=== PATIENT | female | born 1965 | race Hispanic/Latino ===

== ENCOUNTER 2016-11-19 11:33 | Inpatient (IN) | payer MEDICAID ==
[2016-11-19] MEDS ORDERED: ZOFRAN IV ONE (12:23)
[2016-11-19] MEDS ORDERED: ASPIRIN PO ONE (12:23)
[2016-11-19] MEDS ORDERED: MORPHINE IV ONE (12:23)
[2016-11-19] MEDS ORDERED: ECOTRIN PO ONE (12:29)
--- NOTE | 2016-11-19 12:29 | Emergency Department Report ---
ED Chest Pain HPI - General Stated Complaint: CHEST PAIN Time Seen by Provider: 11/19/16 12:15 Source: patient, old records reviewed (no previous record) Mode of arrival: Ambulatory Limitations: No Limitations - History of Present Illness Initial Comments: 51-year-old female with a past medical history CHF, COPD, bipolar disease, and defibrillator placement presents to the hospital complaining of chest pain 3 days. Symptoms worsened at 10 AM today. Pain is across upper and mid chest and described as a cramping intermittent tightness. Pain is moderate in intensity. No aggravating or alleviating factors reported. Positive associated shortness of breath and nausea. No vomiting or diaphoresis. Patient also have intermittent cramping to her left arm and leg which is constant. No weakness or numbness reported. 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 This is her first visit here. She reports having a cardiac cath in September 2015 at denies stent placement but states defibrillator was placed after that procedure. She denies history of PE/DVT, recent travel, or calf tenderness - Related Data Home Medications Medication Instructions Recorded Confirmed Last Taken Carvedilol [Coreg] 12.5 mg PO DAILY 11/19/16 11/19/16 11/18/16 Gabapentin [Neurontin] 600 mg PO BID 11/19/16 11/19/16 11/18/16 Lisinopril [Zestril TAB] 40 mg PO QDAY 11/19/16 11/19/16 11/18/16 Zolpidem [Ambien] 10 mg PO QHS 11/19/16 11/19/16 11/18/16 traMADol [Ultram] 50 mg PO BID 11/19/16 11/19/16 11/18/16 Allergies Allergy/AdvReac Type Severity Reaction Status Date / Time ketorolac tromethamine AdvReac Unknown Verified 11/19/16 12:34 [From Toradol] Heart Score - HEART Score History: Slightly suspicious EKG: Normal Age: 45-65 Risk factors: 1-2 risk factors Troponin: < normal limit HEART Score: 2 ED Review of Systems ROS: Stated complaint: CHEST PAIN Other details as noted in HPI Comment: All other systems reviewed and negative Other: Constitutional: No fevers chills Eyes: No eye pain visual changes ENT: No ear pain or throat pain Neck: Denies pain Respiratory: Denies cough wheezing Cardiovascular: Denies palpitations, syncope GI: Denies abdominal pain, vomiting, diarrhea : Denies dysuria Musculoskeletal: Denies back pain, joint swelling Skin: Denies rash, lesions, erythema Neurologic: Denies headache, numbness, weakness ED Past Medical Hx - Past Medical History Previous Medical History?: Yes Hx Congestive Heart Failure: Yes Hx GERD: Yes Hx Psychiatric Treatment: Yes (bipolar) Hx COPD: Yes - Surgical History Past Surgical History?: Yes Hx Internal Defibrillator: Yes - Medications Home Medications: Home Medications Medication Instructions Recorded Confirmed Last Taken Type Carvedilol [Coreg] 12.5 mg PO DAILY 11/19/16 11/19/16 11/18/16 History Gabapentin [Neurontin] 600 mg PO BID 11/19/16 11/19/16 11/18/16 History Lisinopril [Zestril TAB] 40 mg PO QDAY 11/19/16 11/19/16 11/18/16 History Zolpidem [Ambien] 10 mg PO QHS 11/19/16 11/19/16 11/18/16 History traMADol [Ultram] 50 mg PO BID 11/19/16 11/19/16 11/18/16 History ED Physical Exam - Other Other exam information: General: No limitations, patient is alert in no acute distress Head exam: Atraumatic, normocephalic Eyes exam: Normal appearance, pupils equal reactive to light, extraocular movements intact ENT: Moist mucous membrane, normal oropharynx Neck exam: Normal inspection, full range of motion, no meningismus nontender Respiratory exam: Clear to auscultation bilateral, no wheezes, rales, crackles Cardiovascular: Normal rate and rhythm, normal heart sounds. Anterior sternal chest wall tenderness greatest on the left upper chest wall. Patient states this feels like a pressure which is different from her cramping tightness sensation Abdomen: Soft, nondistended, and nontender, with normal bowel sounds, no rebound, or guarding Extremity: Full range of motion normal inspection no deformity, no calf tenderness or Back: Normal Inspection, full range of motion, no tenderness Neurologic: Alert, oriented x3, cranial nerves intact, no motor or sensory deficit Psychiatric: normal affect, normal mood Skin: Warm, dry, intact ED Course Vital Signs 11/19/16 11/19/16 11/19/16 11:50 12:50 13:20 Temperature 98.3 F Pulse Rate 88 Respiratory 20 20 Rate Blood Pressure 135/69 O2 Sat by Pulse 99 Oximetry 11/19/16 15:11 Temperature Pulse Rate Respiratory 20 Rate Blood Pressure O2 Sat by Pulse 100 Oximetry KRISTY score - Kristy Score Age > 65: (0) No Aspirin use within the Past 7 Days: (0) No 3 or more CAD Risk Factors: (1) Yes 2 or more Angina events in past 24 hrs: (1) Yes Known CAD with more than 50% Stenosis: (0) No Elevated Cardiac Markers: (0) No ST Deviation Greater than 0.5mm: (0) No KRISTY Score: 2 ED Medical Decision Making - Lab Data Result diagrams: 11/19/16 12:37 11/19/16 12:37 Lab Results 11/19/16 11/19/16 11/19/16 Range/Units 12:37 12:37 12:37 WBC 7.5 (4.5-11.0) K/mm3 RBC 4.24 (3.65-5.03) M/mm3 Hgb 13.0 (10.1-14.3) gm/dl Hct 39.5 (30.3-42.9) % MCV 93 (79-97) fl MCH 31 (28-32) pg MCHC 33 (30-34) % RDW 16.3 H (13.2-15.2) % Plt Count 108 L (140-440) K/mm3 Lymph % (Auto) 19.1 (13.4-35.0) % [place] % (Auto) 5.1 (0.0-7.3) % Eos % (Auto) 1.1 (0.0-4.3) % Baso % (Auto) 0.8 (0.0-1.8) % Lymph # 1.4 (1.2-5.4) K/mm3 [place] # 0.4 (0.0-0.8) K/mm3 Eos # 0.1 (0.0-0.4) K/mm3 Baso # 0.1 (0.0-0.1) K/mm3 Seg Neutrophils % 73.9 H (40.0-70.0) % Seg Neutrophils # 5.5 (1.8-7.7) K/mm3 PT 12.6 (12.2-14.9) Sec. INR 0.95 (0.87-1.13) Sodium 142 (137-145) mmol/L Potassium 3.0 L (3.6-5.0) mmol/L Chloride 105.2 (98-107) mmol/L Carbon Dioxide 22 (22-30) mmol/L Anion Gap 18 mmol/L BUN 7 (7-17) mg/dL Creatinine 0.6 L (0.7-1.2) mg/dL Estimated GFR > 60 ml/min BUN/Creatinine Ratio 11.66 % Glucose 107 H (65-100) mg/dL Calcium 8.3 L (8.4-10.2) mg/dL Total Creatine Kinase 58 (30-135) units/L CK-MB (CK-2) 1.3 (0.0-4.0) ng/mL CK-MB (CK-2) Rel Index 2.2 (0-4) Troponin T < 0.010 (0.00-0.029) ng/mL - EKG Data -: EKG Interpreted by Me (nsr rate 74, lae) - EKG Data When compared to previous EKG there are: previous EKG unavailable - Radiology Data Radiology results: report reviewed (chest x-ray: No acute findings, single-lead pacemaker/defibrillator) - Medical Decision Making Plan to admit patient to the hospital for chest pain. There is a reproducible component to her pain suggestive of MSK pain. Patient also suffering from cramp -like pain and spasms likely associated with hypokalemia. Potassium was supplemented. Magnesium was added and pending at disposition. Aspirin given in the ED, morphine, and Zofran. - Differential Diagnosis MSK pain, costochondritis, WA, PE, unstable angina Critical Care Time: No Critical care attestation.: If time is entered above; I have spent that time in minutes in the direct care of this critically ill patient, excluding procedure time. ED Disposition Clinical Impression: Chest pain, Muscle cramp, Hypokalemia, AICD (automatic cardioverter/ defibrillator) present, Thrombocytopenia Disposition: OP ADMIT IP TO THIS HOSP Is pt being admited?: Yes Does the pt Need Aspirin: Yes Condition: Stable Referrals: PRIMARY CARE, [Primary Care Provider] - 3-5 Days Time of Disposition: 13:44 (Dr Garcia/hosp)
[2016-11-19 12:54] LABS: Basophils % (Auto) 0.8 % (0.0-1.8); Eosinophils % (Auto) 1.1 % (0.0-4.3); Hematocrit 39.5 % (30.3-42.9); Mean Corpuscular HGB Conc 33 % (30-34); Mean Corpuscular Hemoglobin 31 pg (28-32); Mean Corpuscular Volume 93 fl (79-97); Platelet Count 108 K/mm3 (140-440); Red Blood Count 4.24 M/mm3 (3.65-5.03); Red Cell Distribution Width 16.3 % (13.2-15.2); White Blood Count 7.5 K/mm3 (4.5-11.0)
[2016-11-19 13:10] LABS: INR 0.95 (0.87-1.13)
[2016-11-19 13:13] LABS: Creatine Kinase MB 1.3 ng/mL (0.0-4.0)
--- NOTE | 2016-11-19 13:13 | XRay Report ---
AP CHEST: HISTORY: chest pain AP view of the chest demonstrates a normal mediastinal and cardiac contour with clear lungs and normal bony and soft tissue structures. Single lead pacemaker is in position. IMPRESSION: No acute cardiopulmonary process appreciated.
[2016-11-19 13:14] LABS: Anion Gap 18 mmol/L; BUN/Creatinine Ratio 11.66; Blood Urea Nitrogen 7 mg/dL (7-17); Calcium 8.3 mg/dL (8.4-10.2); Carbon Dioxide 22 mmol/L (22-30); Chloride 105.2 mmol/L (98-107); Creatine Kinase 58 units/L (30-135); Glucose 107 mg/dL (65-100); Sodium 142 mmol/L (137-145)
[2016-11-19] MEDS ORDERED: K-DUR PO ONE ×3 (13:42→20:00)
[2016-11-19] MEDS ORDERED: NON-FORMULARY (Gabapentin [Neurontin] 600 MG) PO SCH (15:45)
[2016-11-19] MEDS ORDERED: NITROSTAT SL PRN (15:46)
[2016-11-19] MEDS ORDERED: K-DUR PO SCH (16:00)
[2016-11-19] MEDS ORDERED: ULTRAM PO SCH (16:00)
--- NOTE | 2016-11-19 16:01 | History and Physical Report ---
History of Present Illness Date of examination: 11/19/16 Chief complaint: Chest pain History of present illness: 51-year-old female with past medical history significant for CHF status post AICD, GERD, hypertension, bipolar, neuropathy presented to the emergency department complaining of chest pain for the last 3 days. Chest pain midsternal, 8/10 intensity, crampy, associated with shortness of breath, diaphoresis and clammy, with radiation to the left arm. Patient denied palpitation, shortness of breath, leg swelling. Patient has cardiac cath at another hospital a year ago. REVIEW OF SYSTEMS: GENERAL: no weight change, no fatigue, no fever HEAD: no head ache EYES: no blurry vision, no acute visual loss EARS: no hearing loss, no discharge, no earache NOSE: no stuffiness, no sneezing, no discharge MOUTH, THROAT AND NECK: no bleeding gums, no sore throat, no swollen neck CARDIAC: no palpitations, + dyspnea on exertion, no orthopnea, no PND, no edema , + chest pain RESPIRATORY: no shortness of breath, no wheeze, no cough, no sputum, no hemoptysis, no asthma GI: no decreased appetite, no nausea, no vomiting, no dysphagia, no diarrhea, no constipation, no abdominal pain URINARY: no change in frequency, no urgency, no polyuria, no hematuria, no incontinence MUSCULOSKELETAL: no muscle weakness, no pain, no joint stiffness NEUROLOGIC: no loss of sensation/numbness,+ tingling, no tremors, no weakness/ paralysis HEMATOLOGIC: no anemia, no easy bruising SKIN: no rashes ENDOCRINE: no heat/cold intolerance, no polyuria, no polydipsia, no thyroid problems, no diabetes. PSYCHIATRIC: no anxiety, no depression, no suicidal ideations Past History Past Medical History: GERD, heart failure, hypertension Past Surgical History: appendectomy, cholecystectomy, , Other (neck fusion surgery) Social history: smoking (1/2 ppd cigarettes and marijuana), full code. denies: alcohol abuse, prescription drug abuse, IV drug use Family history: no significant family history Medications and Allergies Allergies Allergy/AdvReac Type Severity Reaction Status Date / Time ketorolac tromethamine AdvReac Unknown Verified 11/19/16 12:34 [From Toradol] Home Medications Medication Instructions Recorded Confirmed Last Taken Type Carvedilol [Coreg] 12.5 mg PO DAILY 11/19/16 11/19/16 11/18/16 History Gabapentin [Neurontin] 600 mg PO BID 11/19/16 11/19/16 11/18/16 History Lisinopril [Zestril TAB] 40 mg PO QDAY 11/19/16 11/19/16 11/18/16 History Zolpidem [Ambien] 10 mg PO QHS 11/19/16 11/19/16 11/18/16 History traMADol [Ultram] 50 mg PO BID 11/19/16 11/19/16 11/18/16 History Active Meds: Active Medications Aspirin (Aspirin) 325 mg PO QDAY JAYJAY Atorvastatin Calcium (Lipitor) 40 mg PO QHS JAYJAY Carvedilol (Coreg) 12.5 mg PO DAILY JAYJAY Furosemide (Lasix) 40 mg PO DAILY JAYJAY Lisinopril (Zestril) 40 mg PO QDAY [facility] Miscellaneous Medication (Gabapentin [Neurontin]) 600 mg PO BID [facility] Nitroglycerin (Nitrostat) 0.4 mg SL .Q5MIN PRN PRN Reason: Chest Pain Potassium Chloride (K-Dur) 40 meq PO DAILY JAYJAY Tramadol HCl (Ultram) 50 mg PO BID JAYJAY Zolpidem Tartrate (Ambien) 10 mg PO QHS [facility] Exam - Constitutional Vitals: Temp Pulse Resp BP Pulse Ox 98.3 F 88 20 135/69 100 11/19/16 11:50 11/19/16 11:50 11/19/16 15:11 11/19/16 11:50 11/19/16 15:11 Results - Labs CBC & Chem 7: 11/19/16 12:37 11/19/16 12:37 Labs: Laboratory Last Values WBC 7.5 K/mm3 (4.5-11.0) 11/19/16 12:37 RBC 4.24 M/mm3 (3.65-5.03) 11/19/16 12:37 Hgb 13.0 gm/dl (10.1-14.3) 11/19/16 12:37 Hct 39.5 % (30.3-42.9) 11/19/16 12:37 MCV 93 fl (79-97) 11/19/16 12:37 MCH 31 pg (28-32) 11/19/16 12:37 MCHC 33 % (30-34) 11/19/16 12:37 RDW 16.3 % (13.2-15.2) H 11/19/16 12:37 Plt Count 108 K/mm3 (140-440) L 11/19/16 12:37 Lymph % (Auto) 19.1 % (13.4-35.0) 11/19/16 12:37 [place] % (Auto) 5.1 % (0.0-7.3) 11/19/16 12:37 Eos % (Auto) 1.1 % (0.0-4.3) 11/19/16 12:37 Baso % (Auto) 0.8 % (0.0-1.8) 11/19/16 12:37 Lymph # 1.4 K/mm3 (1.2-5.4) 11/19/16 12:37 [place] # 0.4 K/mm3 (0.0-0.8) 11/19/16 12:37 Eos # 0.1 K/mm3 (0.0-0.4) 11/19/16 12:37 Baso # 0.1 K/mm3 (0.0-0.1) 11/19/16 12:37 Seg Neutrophils % 73.9 % (40.0-70.0) H 11/19/16 12:37 Seg Neutrophils # 5.5 K/mm3 (1.8-7.7) 11/19/16 12:37 PT 12.6 Sec. (12.2-14.9) 11/19/16 12:37 INR 0.95 (0.87-1.13) 11/19/16 12:37 Sodium 142 mmol/L (137-145) 11/19/16 12:37 Potassium 3.0 mmol/L (3.6-5.0) L 11/19/16 12:37 Chloride 105.2 mmol/L (98-107) 11/19/16 12:37 Carbon Dioxide 22 mmol/L (22-30) 11/19/16 12:37 Anion Gap 18 mmol/L 11/19/16 12:37 BUN 7 mg/dL (7-17) 11/19/16 12:37 Creatinine 0.6 mg/dL (0.7-1.2) L 11/19/16 12:37 Estimated GFR > 60 ml/min 11/19/16 12:37 BUN/Creatinine Ratio 11.66 % 11/19/16 12:37 Glucose 107 mg/dL (65-100) H 11/19/16 12:37 Calcium 8.3 mg/dL (8.4-10.2) L 11/19/16 12:37 Magnesium 1.70 mg/dL (1.7-2.3) 11/19/16 12:37 Total Creatine Kinase 58 units/L (30-135) 11/19/16 12:37 CK-MB (CK-2) 1.3 ng/mL (0.0-4.0) 11/19/16 12:37 CK-MB (CK-2) Rel Index 2.2 (0-4) 11/19/16 12:37 Troponin T < 0.010 ng/mL (0.00-0.029) 11/19/16 12:37 Assessment and Plan Assessment and plan: Chest pain Unspecified CHF status post AICD Bipolar Neuropathy GERD Active tobacco use Thrombocytopenia - first set of cardiac enzyme negative - Patient admitted and managed according to chest pain protocol - Cardiology consulted - Appropriate home medications reconciled - Acute hepatitis panel DVT prophylaxis - SCD because patient of thrombocytopenia Disposition - Admit to telemetry floor Advance Directives: Yes VTE prophylaxis?: Chemical Reason for no VTE Prophylaxis: Medical contraindication Plan of care discussed with patient/family: Yes
[2016-11-19] MEDS ORDERED: HABITROL TD ONE (16:31)
[2016-11-19 16:58] LABS: INR 0.93 (0.87-1.13)
[2016-11-19] MEDS ORDERED: ULTRAM ONE (16:58)
[2016-11-19] MEDS ORDERED: COREG ONE (17:00)
[2016-11-19] MEDS ORDERED: NEURONTIN ONE (17:01)
[2016-11-19] MEDS: COREG PO SCH (17:19)
[2016-11-19 17:40] LABS: Bilirubin,Urine SM (Negative); Blood,Urine NEG (Negative); Ketones,Urine TR mg/dL (Negative); Leukocyte Esterase,Urine NEG (Negative); Mucus,Urine 1+ /HPF; Nitrite,Urine NEG (Negative)
[2016-11-19] MEDS: DILAUDID IM PRN (20:03)
[2016-11-19] MEDS: PROTONIX PO SCH (20:03)
[2016-11-19] MEDS ORDERED: HEPARIN SUB-Q SCH (22:00)
[2016-11-19] MEDS: NEURONTIN PO SCH (22:17)
[2016-11-19] MEDS: ULTRAM PO SCH (22:18)
[2016-11-19] MEDS: AMBIEN PO SCH (22:19)
[2016-11-20] MEDS: DILAUDID IM PRN ×5 (00:16→20:30)
--- NOTE | 2016-11-20 02:39 | Admit Criteria Form ---
Admission Criteria Documentation: CARDIOLOGY GRG Clinical Indications for Admission to Inpatient Care ( Place 'X' for any and all applicable criteria): Hospital admission is needed for appropriate care of the patient because of ANY ONE of the following (1): [ ] I. Hemodynamic instability as indicated by ALL of the following (1)(2)(3) (4)(5) [ ]a) Vital signs or other findings not as expected for chronic patient condition or baseline [ ]b) Instability indicated by ANY ONE of the following: [ ]i) Hypotension [ ]ii) Symptomatic Tachycardia unresponsive to treatment ( e.g., analgesia, fluids, sedation as indicated) [ ]iii) Inadequate perfusion indicated by ANY ONE of the following: [ ] 1) Lactic acidosis (> 2 mmol/L) [ ] 2) New abnormal capillary refill (> 3 seconds) [ ] 3) Reduced urine output [ ] 4) New altered mental status [ ]iv) Orthostatic vital sign changes unresponsive to treatment (e.g., fluids) [ ]v) IV inotropic or vasopressor medication required to maintain adequate blood pressure or perfusion [ ] II. Severe heart failure as indicated by ANY ONE of the following(17)(18) [ ]a) Respiratory distress [ ]b) Hypotension [ ]c) Anasarca (refractory to outpatient therapy) [ ]d) Cardiac arrhythmias of immediate concern [ ]e) Myocardial ischemia [ ] III. Cardiac arrhythmias or findings of immediate concern indicated by ANY ONE of the following (19)(20): [ ] a) Heart rhythms that are inherently dangerous or unstable indicated by ANY ONE of the following (21)(22)(23): [ ] i) Resuscitated ventricular fibrillation or cardiac arrest [ ] ii) Ventricular escape rhythm [ ] iii) Sustained ventricular tachycardia (30 seconds or more of ventricular rhythm at greater than 100 beats per minute) [ ] iv) Nonsustained ventricular tachycardia and ANY ONE of the following: [ ] 1) Suspected cardiac ischemia as cause or consequence of ventricular tachycardia [ ] 2) In setting of acute myocarditis [ ] b) Unstable cardiac conduction defects indicated by ANY ONE of the following(23)(24)(25) [ ] i) Type II second-degree atrioventricular block [ ]ii) Third-degree atrioventricular block [ ]iii) New-onset left bundle branch block with suspected myocardial ischemia [ ]c) Any heart rhythm and ANY ONE of the following (21)(22)(26)(27) (28) [ ] i) Continuous long-term ECG monitoring needed (e.g., initiation of drug requiring monitoring for more than 24 hours) [ ] ii) Patient has automatic implanted cardioverter defibrillator that is repeatedly firing, malfunctioning, or in need of immediate adjustment of settings beyond the scope of ambulatory or observation care [ ]d) Heart rhythms of concern due to ANY ONE of the following: [ ] i) Hypotension [ ] ii) Respiratory distress [ ] iii) Association with other significant symptoms (e.g., bradycardia with syncope or ongoing dizziness, supraventricular tachycardia with chest pain (14)(15)(17) [ ] IV. Monitoring for cardiac contusion beyond the scope of observation care needed [A](30)(31)(32) [ ] V. Surgical or device complication (e.g., valve replacement complication , pacemaker dysfunction) (35)(41)(44)(45)(46) [ ] . Inpatient palliative care needed. [B](49) Also use Inpatient Palliative Care Criteria [ ] VII. Nonbacterial thrombotic (marantic) endocarditis (36)(43)(47)(48) [X ] VIII. Cardiology condition, symptom, or finding for which emergency and observation care has failed or are not considered appropriate. [ ] IX. Acute valvular disease requiring inpatient as indicated by ANY ONE of the following (41) [ ]a) Acute valvular regurgitation (42) [ ]b) Noninfectious valvulitis (43) [ ]c) Obstructive valve thrombosis [ ]d) Paravalvular leak [ ]e) Other significant valvular disorder remaining after emergency or observation level of care (as appropriate) [ ]X. Pericardial disease requiring inpatient treatment as indicated by ANY ONE of the following (33)(34)(35)(36)(37) [ ]a) Suspected tamponade (38)(39)(40) [ ]b) Hemopericardium [ ]c) Other significant pericardial disorder remaining after emergency or observation level of care (as appropriate) [ ] XI. Cardiac ischemia beyond scope of emergency and observation care. [ ] XII. Hypertension requiring inpatient treatment as indicated by ANY ONE of the following (6)(7)(8) [ ]a) SBP greater than 220 mm Hg or DBP greater than 120 mmHg despite treatment [ ]b) SBP greater than 140 mm Hg or DBP greater than 100 mm Hg with evidence of acute end organ damage as indicated by ANY ONE of the following [ ] i) Altered mental status [ ] ii) Acute renal failure as indicated by new onset of ANY ONE of the following (9)(10)(11)(12)(13) [ ]1) 3-fold rise in serum creatinine from baseline [ ]2) Serum creatinine greater than 4 mg/dL ( 354 micromoles/L) with acute rise greater than 0.5 mg/dL (44.2 micromoles/L) [ ]3) Reduction of more than 75% in estimated glomerular filtration rate from baseline [ ]4) Estimated glomerular filtration rate less than 35 mL/min/1.73m2 (0.59 mL/sec/1.73m2) in child up to 18 years of age [ ]5) Cessation of urine output indicated by ALL of the following [ ]A. Adequate volume status [ ]B. Inadequate urine output as indicated by ANY ONE of the following [ ]a. Urine output less than 0.3 mL/kg/hr for 24 hours [ ]b. Anuria (urine output less than 0.1 mL/kg/hr) for 12 hours [ ] iii) Aortic dissection [ ] iv) Myocardial Ischemia [ ] v) Left ventricular heart failure [ ]vi) Retinal Hemorrhage [ ]vii) Other significant finding [ ]c) Hypertension in child requiring inpatient treatment as indicated by ALL of the following(14)(15)(16) [ ] i) Outpatient treatment not effective, not available, or not appropriate [ ]ii) SBP or DBP greater than 95th percentile for age [ ]iii) Evidence of acute end organ damage as indicated by ANY ONE of the following [ ]1) Altered mental status [ ]2) Acute renal failure as indicated by new onset of ANY ONE of the following(9)(10)(11)(12)(13) [ ]A. 3-fold rise in serum creatinine from baseline [ ]B. Serum creatinine greater than 4 mg/dL (354 micromoles/L) with acute rise greater than 0.5 mg/dL (44.2 micromoles/L) [ ]C. Reduction of more than 75% in estimated glomerular filtration rate from baseline [ ]D. Estimated glomerular filtration rate less than 35 mL/min/1.73m2 (0.59 mL/sec/1.73m2) in child up to 18 years of age [ ]E. Cessation of urine output indicated by ALL of the following [ ]a. Adequate volume status [ ]b. Inadequate urine output as indicated by ANY ONE of the following [ ]i) Urine output less than 0.3 mL/kg/hr for 24 hours [ ]ii) Anuria ( urine output less than 0.1 mL/kg/hr) for 12 hours [ ]3) Severe headache [ ]4) Visual disturbance [ ]5) Retinal hemorrhage [ ]6) Other significant finding [ ]XIII. Complications of transplanted heart indicated by ANY ONE of the following(61): [ ]a) Acute graft rejection requiring inpatient management (eg, intravenous immunosuppression)(62)(63) [ ]b) Acute graft heart failure indicated by ANY ONE of the following(64): [ ]i) Hemodynamic instability [ ]ii) Cardiac arrhythmias of immediate concern [ ]iii) Pulmonary edema that is very severe (eg, mechanical ventilation needed, imminent or likely, need for 100% oxygen to keep oxygen saturation above 90%) [ ]iv) Pulmonary edema that is persistent as indicated by ALL of the following: [ ]1) New need for oxygen therapy to keep oxygen saturation above 90% (or increased FiO2 need from baseline) [ ]2) Has not improved sufficiently with emergency department or observation care IV diuretics or other heart failure treatments[E] [ ]v) Altered mental status that is severe or persistent [ ]vi) Increased creatinine (new on laboratory test) with reduction of more than 50% in estimated glomerular filtration rate from baseline [ ]vii) Progressively (ongoing) rising creatinine (known from past laboratory test) with reduction of more than 25% in estimated glomerular filtration rate from baseline [ ]viii) Acute renal failure [ ]ix) Acute peripheral ischemia (eg, examination shows pulseless, cool, mottled, or cyanotic extremity) [ ]x) Pulmonary artery catheter monitoring needed [ ]xi) Other sign or symptom of heart failure requiring inpatient treatment (ie, too severe or not responsive to outpatient and observation care treatment) [ ]c) Infection requiring inpatient management (eg, Hemodynamic instability, need for intravenous antimicrobial treatment)(66)(67)(68)(69)(70) [ ]d) Cardiac allograft vasculopathy requiring inpatient management ( eg evidence of cardiac ischemia)(71) [ ]e) Other complication of transplanted heart (eg, stroke, severe pulmonary hypertension, severe valvular dysfunction) requiring inpatient management(72) The original [facility] [employer] content created by [employer] has been revised. The portions of the content which have been revised are identified through the use of italic text or in bold, and [facility] has neither reviewed nor approved the modified material. All other unmodified content is copyright [facility] [employer]. Please see references footnoted in the original [facility] [employer] edition 2016 Admission Criteria Met: Yes
[2016-11-20 06:05] LABS: Basophils % (Auto) 0.9 % (0.0-1.8); Eosinophils % (Auto) 3.6 % (0.0-4.3); Hematocrit 37.8 % (30.3-42.9); Hemoglobin 12.2 gm/dl (10.1-14.3); Mean Corpuscular HGB Conc 32 % (30-34); Mean Corpuscular Hemoglobin 30 pg (28-32); Mean Corpuscular Volume 94 fl (79-97); Red Blood Count 4.02 M/mm3 (3.65-5.03); Red Cell Distribution Width 16.2 % (13.2-15.2); White Blood Count 7.8 K/mm3 (4.5-11.0)
[2016-11-20 06:09] LABS: Platelet Count 84 K/mm3 (140-440)
[2016-11-20 06:14] LABS: Anion Gap 15 mmol/L; BUN/Creatinine Ratio 12.22; Blood Urea Nitrogen 11 mg/dL (7-17); Calcium 8.4 mg/dL (8.4-10.2); Carbon Dioxide 26 mmol/L (22-30); Chloride 104.7 mmol/L (98-107); Cholesterol 116 mg/dL (50-199); Glucose 96 mg/dL (65-100); HDL Cholesterol 29 mg/dL (40-59); LDL Cholesterol,Direct 57 mg/dL (50-130); Potassium 3.9 mmol/L (3.6-5.0); Sodium 142 mmol/L (137-145); Triglycerides 150 mg/dL (2-149)
[2016-11-20] MEDS: NEURONTIN PO SCH ×3 (10:33→21:34)
[2016-11-20] MEDS: ASPIRIN PO SCH (10:33)
[2016-11-20] MEDS: COREG PO SCH (10:34)
[2016-11-20] MEDS: ULTRAM PO SCH ×2 (10:34→21:34)
[2016-11-20] MEDS: PROTONIX PO SCH (10:34)
[2016-11-20] MEDS: LASIX PO SCH (10:34)
[2016-11-20] MEDS: K-DUR PO SCH (10:34)
[2016-11-20] MEDS: ZESTRIL PO SCH (10:34)
--- NOTE | 2016-11-20 10:46 | Consultation ---
History of Present Illness Consult date: 11/20/16 Consult reason: chest pain History of present illness: Patient's a 47-year-old woman with a history of a dilated nonischemic cardiomyopathy. The diagnosis was made within the last several years when she lived on the [place]. A year ago, she underwent cardiac catheterization at [facility], that revealed the absence of coronary artery disease, and established the diagnosis of a nonischemic cardiomyopathy. Subsequently, she underwent the placement of a single-chamber internal cardiac defibrillator at [facility]. She recently moved to this area but has continued to follow-up with her animal behaviourist at [facility]. She maintains a low salt diet, and proper compliance with her routine heart failure medications. She presents to the hospital at this time, complaining of crampy pain on the left side of her body including her neck, face, left chest, left arm and left leg. There is associated numbness to the tips of her left fingers and her left toes. In contrast, there are no symptoms on the right side of her body. There are no visual symptoms, and no focal motor weakness of her limbs. She denies any prior history of stroke or TIA. Comorbidities include chronic tobacco abuse, hypertension and a history of cervical radiculopathy, for which she received fusion surgery on the neck many years ago. A review of her cardiac studies on this presentation, ECG is normal sinus rhythm , occasional PVCs, left ventricle hypertrophy, otherwise no acute ischemic changes. Chest x-ray reveals cardiomegaly, but no evidence of heart failure. Cardiac enzymes are negative. Past History Past Medical History: GERD, heart failure, hypertension Past Surgical History: appendectomy, cholecystectomy, , Other (neck fusion surgery) Social history: smoking (1/2 ppd cigarettes and marijuana), full code. denies: alcohol abuse, prescription drug abuse, IV drug use Family history: no significant family history Medications and Allergies Allergies Allergy/AdvReac Type Severity Reaction Status Date / Time ketorolac tromethamine AdvReac Unknown Verified 11/19/16 12:34 [From Toradol] Home Medications Medication Instructions Recorded Confirmed Last Taken Type Carvedilol [Coreg] 12.5 mg PO DAILY 11/19/16 11/19/16 11/18/16 History Gabapentin [Neurontin] 600 mg PO BID 11/19/16 11/19/16 11/18/16 History Lisinopril [Zestril TAB] 40 mg PO QDAY 11/19/16 11/19/16 11/18/16 History Zolpidem [Ambien] 10 mg PO QHS 11/19/16 11/19/16 11/18/16 History traMADol [Ultram] 50 mg PO BID 11/19/16 11/19/16 11/18/16 History Active Meds: Active Medications Aspirin (Aspirin) 325 mg PO QDAY [facility] Last Admin: 11/20/16 10:33 Dose: 325 mg Atorvastatin Calcium (Lipitor) 40 mg PO QHS [facility] Last Admin: 11/19/16 22:17 Dose: 40 mg Carvedilol (Coreg) 12.5 mg PO DAILY [facility] Last Admin: 11/20/16 10:34 Dose: 12.5 mg Furosemide (Lasix) 40 mg PO DAILY [facility] Last Admin: 11/20/16 10:34 Dose: 40 mg Gabapentin (Neurontin) 600 mg PO BID [facility] Last Admin: 11/20/16 10:33 Dose: 600 mg Hydromorphone HCl (Dilaudid) 0.5 mg IM Q4H PRN PRN Reason: Pain Last Admin: 11/20/16 10:35 Dose: 0.5 mg Lisinopril (Zestril) 40 mg PO QDAY [facility] Last Admin: 11/20/16 10:34 Dose: 40 mg Nitroglycerin (Nitrostat) 0.4 mg SL .Q5MIN PRN PRN Reason: Chest Pain Pantoprazole Sodium (Protonix) 40 mg PO DAILY [facility] Last Admin: 11/20/16 10:34 Dose: 40 mg Potassium Chloride (K-Dur) 40 meq PO DAILY [facility] Last Admin: 11/20/16 10:34 Dose: 40 meq Tramadol HCl (Ultram) 50 mg PO BID [facility] Last Admin: 11/20/16 10:34 Dose: 50 mg Zolpidem Tartrate (Ambien) 10 mg PO QHS [facility] Last Admin: 11/19/16 22:19 Dose: 10 mg Review of Systems Cardiovascular: chest pain, no orthopnea, no palpitations, no rapid/irregular heart beat, no edema, no syncope, no lightheadedness, no shortness of breath Physical Examination Vital Signs Temp Pulse BP Pulse Ox 98.3 F 88 135/69 99 11/19/16 11:50 11/19/16 11:50 11/19/16 11:50 11/19/16 11:50 General appearance: no acute distress HEENT: Positive: PERRL Neck: Positive: neck supple Cardiac: Positive: Reg Rate and Rhythm Lungs: Positive: Decreased Breath Sounds Neuro: Positive: Grossly Intact Abdomen: Positive: Soft Female genitourinary: deferred Skin: Positive: Clear Extremities: Absent: edema Results 11/20/16 04:30 11/20/16 04:30 Lipids 11/20/16 Range/Units 04:30 Triglycerides 150 H (2-149) mg/dL Cholesterol 116 (50-199) mg/dL HDL Cholesterol 29 L (40-59) mg/dL Cholesterol/HDL Ratio 4.00 % CBC 11/20/16 Range/Units 04:30 WBC 7.8 (4.5-11.0) K/mm3 RBC 4.02 (3.65-5.03) M/mm3 Hgb 12.2 (10.1-14.3) gm/dl Hct 37.8 (30.3-42.9) % Plt Count 84 L (140-440) K/mm3 Lymph # 3.0 (1.2-5.4) K/mm3 [place] # 0.5 (0.0-0.8) K/mm3 Eos # 0.3 (0.0-0.4) K/mm3 Baso # 0.1 (0.0-0.1) K/mm3 Comprehensive Metabolic Panel 11/20/16 Range/Units 04:30 Sodium 142 (137-145) mmol/L Potassium 3.9 (3.6-5.0) mmol/L Chloride 104.7 (98-107) mmol/L Carbon Dioxide 26 (22-30) mmol/L BUN 11 (7-17) mg/dL Creatinine 0.9 (0.7-1.2) mg/dL Glucose 96 (65-100) mg/dL Calcium 8.4 (8.4-10.2) mg/dL EKG interpretations - Telemetry EKG Rhythm: Sinus Rhythm Assessment and Plan - Patient Problems (1) Atypical chest pain Current Visit: Yes Status: Acute Plan to address problem: The patient's pain is atypical, the description is consistent with musculoskeletal pain and numbness involving the left side of the body, recommend neurological assessment. Does not appear to represent angina or cardiac symptomatology. If her symptoms on neuro assessment appeared to suggest a TIA, then an echocardiogram will be prudent for cardioembolic source. Otherwise, no cardiac workup is indicated at this time. We'll continue medical therapy for patient's known dilated cardiomyopathy which appears stable and asymptomatic. (2) Thrombocytopenia Current Visit: Yes Status: Acute Plan to address problem: The patient's platelet count on presentation was 108,000, the chronicity of this pathology is uncertain. This morning, it is 84,000. In addition to requesting her prior records from [place] and [facility], will defer to medicine and hematology for further assessment.
--- NOTE | 2016-11-20 12:16 | Progress Note ---
Assessment and Plan Assessment and plan: Chest pain. Cardiology feels that the pain is likely musculoskeletal in nature and recommends neurology evaluation. ECG is normal sinus rhythm, occasional PVCs, left ventricle hypertrophy, otherwise no acute ischemic changes. Chest x- ray reveals cardiomegaly, but no evidence of heart failure. Cardiac enzymes are negative. Left upper and lower extremity pain/numbness. Neurology consultation. Check CT scan of the head. Consider MRI brain. Etiology likely secondary to neuropathy. Increase dose of gabapentin. Nonischemic cardiomyopathy. s/p AICD Peripheral neuropathy. As above. GERD. Bipolar disorder. Tobacco abuse. Patient will be counseled on tobacco cessation. Thrombocytopenia. History Interval history: Patient complains of numbness of the left upper and lower extremities. Hospitalist Physical - Constitutional Vitals: Temp Pulse Resp BP Pulse Ox 98.1 F 76 19 121/70 97 11/20/16 04:46 11/20/16 07:50 11/20/16 04:46 11/20/16 04:46 11/20/16 04:46 General appearance: Present: no acute distress - EENT Eyes: Present: PERRL, EOM intact ENT: hearing intact, clear oral mucosa, dentition normal - Neck Neck: Present: supple, normal ROM - Respiratory Respiratory effort: normal Respiratory: bilateral: CTA - Cardiovascular Rhythm: regular Heart Sounds: Present: S1 & S2. Absent: gallop, rub - Extremities Extremities: no ischemia, No edema, Full ROM - Abdominal General gastrointestinal: soft, non-tender, non-distended, normal bowel sounds - Integumentary Integumentary: Present: clear, warm, dry - Neurologic Neurologic: CNII-XII intact, moves all extremities Results - Labs CBC & Chem 7: 11/20/16 04:30 11/20/16 04:30 Labs: Laboratory Last Values WBC 7.8 K/mm3 (4.5-11.0) 11/20/16 04:30 RBC 4.02 M/mm3 (3.65-5.03) 11/20/16 04:30 Hgb 12.2 gm/dl (10.1-14.3) 11/20/16 04:30 Hct 37.8 % (30.3-42.9) 11/20/16 04:30 MCV 94 fl (79-97) 11/20/16 04:30 MCH 30 pg (28-32) 11/20/16 04:30 MCHC 32 % (30-34) 11/20/16 04:30 RDW 16.2 % (13.2-15.2) H 11/20/16 04:30 Plt Count 84 K/mm3 (140-440) L 11/20/16 04:30 Lymph % (Auto) 38.4 % (13.4-35.0) H 11/20/16 04:30 [place] % (Auto) 7.1 % (0.0-7.3) 11/20/16 04:30 Eos % (Auto) 3.6 % (0.0-4.3) 11/20/16 04:30 Baso % (Auto) 0.9 % (0.0-1.8) 11/20/16 04:30 Lymph # 3.0 K/mm3 (1.2-5.4) 11/20/16 04:30 [place] # 0.5 K/mm3 (0.0-0.8) 11/20/16 04:30 Eos # 0.3 K/mm3 (0.0-0.4) 11/20/16 04:30 Baso # 0.1 K/mm3 (0.0-0.1) 11/20/16 04:30 Seg Neutrophils % 50.0 % (40.0-70.0) 11/20/16 04:30 Seg Neutrophils # 3.9 K/mm3 (1.8-7.7) 11/20/16 04:30 PT 12.4 Sec. (12.2-14.9) 11/19/16 16:21 INR 0.93 (0.87-1.13) 11/19/16 16:21 Sodium 142 mmol/L (137-145) 11/20/16 04:30 Potassium 3.9 mmol/L (3.6-5.0) 11/20/16 04:30 Chloride 104.7 mmol/L (98-107) 11/20/16 04:30 Carbon Dioxide 26 mmol/L (22-30) 11/20/16 04:30 Anion Gap 15 mmol/L 11/20/16 04:30 BUN 11 mg/dL (7-17) 11/20/16 04:30 Creatinine 0.9 mg/dL (0.7-1.2) 11/20/16 04:30 Estimated GFR > 60 ml/min 11/20/16 04:30 BUN/Creatinine Ratio 12.22 % 11/20/16 04:30 Glucose 96 mg/dL (65-100) 11/20/16 04:30 Calcium 8.4 mg/dL (8.4-10.2) 11/20/16 04:30 Magnesium 1.70 mg/dL (1.7-2.3) 11/19/16 12:37 Total Creatine Kinase 58 units/L (30-135) 11/19/16 12:37 CK-MB (CK-2) 1.3 ng/mL (0.0-4.0) 11/19/16 12:37 CK-MB (CK-2) Rel Index 2.2 (0-4) 11/19/16 12:37 Troponin T < 0.010 ng/mL (0.00-0.029) 11/19/16 20:12 Triglycerides 150 mg/dL (2-149) H 11/20/16 04:30 Cholesterol 116 mg/dL (50-199) 11/20/16 04:30 LDL Cholesterol Direct 57 mg/dL (50-130) 11/20/16 04:30 HDL Cholesterol 29 mg/dL (40-59) L 11/20/16 04:30 Cholesterol/HDL Ratio 4.00 % 11/20/16 04:30 Urine Color Bee (Yellow) 11/19/16 17:23 Urine Turbidity Clear (Clear) 11/19/16 17:23 Urine pH 7.0 (5.0-7.0) 11/19/16 17:23 Ur Specific [place] 1.025 (1.003-1.030) 11/19/16 17:23 Urine Protein 100 mg/dl mg/dL (Negative) 11/19/16 17:23 Urine Glucose (UA) Neg mg/dL (Negative) 11/19/16 17:23 Urine Ketones Tr mg/dL (Negative) 11/19/16 17:23 Urine Blood Neg (Negative) 11/19/16 17:23 Urine Nitrite Neg (Negative) 11/19/16 17:23 Urine Bilirubin Sm (Negative) 11/19/16 17:23 Urine Ictotest Negative (Negative) 11/19/16 17:23 Urine Urobilinogen 2.0 mg/dL (<2.0) 11/19/16 17:23 Ur Leukocyte Esterase Neg (Negative) 11/19/16 17:23 Urine WBC (Auto) 2.0 /HPF (0.0-6.0) 11/19/16 17:23 Urine RBC (Auto) 2.0 /HPF (0.0-6.0) 11/19/16 17:23 U Epithel Cells (Auto) 19.0 /HPF (0-13.0) H 11/19/16 17:23 Urine Mucus 1+ /HPF 11/19/16 17:23 Hepatitis A IgM Ab Non-reactive (NonReactive) 11/19/16 20:12 Hep Bs Antigen Non-reactive (Negative) 11/19/16 20:12 Hep B Core IgM Ab Non-reactive (NonReactive) 11/19/16 20:12 Hepatitis C Antibody Non-reactive (NonReactive) 11/19/16 20:12
--- NOTE | 2016-11-20 16:44 | Cat Scan Report ---
FINAL REPORT PROCEDURE: CT head without contrast. TECHNIQUE: Computerized tomography of the head was performed without contrast material. HISTORY: Left-sided numbness. COMPARISON: No prior studies are available for comparison. FINDINGS: The ventricles are normal in size. The saucedo matter and white matter appear normal. There are no mass lesions. There is no intracranial hemorrhage. There are no signs of acute infarction. The calvarium appears intact. The mastoid air cells and visualized paranasal sinuses are well aerated. IMPRESSION: Normal study.
[2016-11-20] MEDS: AMBIEN PO SCH (21:34)
[2016-11-21] MEDS: DILAUDID IM PRN ×5 (02:52→20:30)
[2016-11-21 05:37] LABS: Basophils % (Auto) 0.6 % (0.0-1.8); Eosinophils % (Auto) 4.5 % (0.0-4.3); Hematocrit 37.9 % (30.3-42.9); Hemoglobin 12.3 gm/dl (10.1-14.3); Mean Corpuscular HGB Conc 32 % (30-34); Mean Corpuscular Hemoglobin 30 pg (28-32); Mean Corpuscular Volume 94 fl (79-97); Red Blood Count 4.04 M/mm3 (3.65-5.03); Red Cell Distribution Width 16.1 % (13.2-15.2); White Blood Count 6.6 K/mm3 (4.5-11.0)
[2016-11-21 05:43] LABS: Platelet Count 79 K/mm3 (140-440)
[2016-11-21 05:59] LABS: Blood Urea Nitrogen 15 mg/dL (7-17); Calcium 8.7 mg/dL (8.4-10.2); Carbon Dioxide 23 mmol/L (22-30); Glucose 93 mg/dL (65-100)
[2016-11-21 06:00] LABS: Anion Gap 17 mmol/L; Chloride 106.5 mmol/L (98-107); Potassium 4.3 mmol/L (3.6-5.0); Sodium 142 mmol/L (137-145)
[2016-11-21] MEDS: NEURONTIN PO SCH ×3 (06:12→22:08)
[2016-11-21] MEDS: K-DUR PO SCH (10:24)
[2016-11-21] MEDS: LASIX PO SCH (10:24)
[2016-11-21] MEDS: ASPIRIN PO SCH (10:25)
[2016-11-21] MEDS: COREG PO SCH (10:25)
[2016-11-21] MEDS: PROTONIX PO SCH (10:25)
[2016-11-21] MEDS: ULTRAM PO SCH ×2 (10:25→22:08)
[2016-11-21] MEDS: ZESTRIL PO SCH (10:25)
--- NOTE | 2016-11-21 10:49 | Progress Note ---
Assessment and Plan Assessment and plan: Chest pain. Cardiology feels that the pain is likely musculoskeletal in nature and recommends neurology evaluation. ECG is normal sinus rhythm, occasional PVCs, left ventricle hypertrophy, otherwise no acute ischemic changes. Chest x- ray reveals cardiomegaly, but no evidence of heart failure. Cardiac enzymes are negative. Continue Coreg, aspirin, and nitroglycerin. Left upper and lower extremity pain/numbness. Neurology consultation. CT scan of the head is negative. Consider MRI brain. Etiology likely secondary to neuropathy. Increase dose of gabapentin. Nonischemic cardiomyopathy. s/p AICD. Continue Zestril and Lasix. Peripheral neuropathy. As above. GERD. Continue Protonix daily. Bipolar disorder. Tobacco abuse. Patient will be counseled on tobacco cessation. Nicotine patch. Thrombocytopenia. History Interval history: Patient complains of numbness of the left upper and lower extremity. Hospitalist Physical - Constitutional Vitals: Temp Pulse Resp BP Pulse Ox 97.0 F L 70 18 112/55 99 11/21/16 08:00 11/21/16 08:00 11/21/16 08:00 11/21/16 08:00 11/21/16 08:00 General appearance: Present: no acute distress - EENT Eyes: Present: PERRL, EOM intact ENT: hearing intact, clear oral mucosa, dentition normal - Neck Neck: Present: supple, normal ROM - Respiratory Respiratory effort: normal Respiratory: bilateral: CTA - Cardiovascular Rhythm: regular Heart Sounds: Present: S1 & S2. Absent: gallop, rub - Extremities Extremities: no ischemia, No edema, Full ROM - Abdominal General gastrointestinal: soft, non-tender, non-distended, normal bowel sounds - Integumentary Integumentary: Present: clear, warm, dry - Neurologic Neurologic: CNII-XII intact, moves all extremities Results - Labs CBC & Chem 7: 11/21/16 04:49 11/21/16 04:49 Labs: Laboratory Last Values WBC 6.6 K/mm3 (4.5-11.0) 11/21/16 04:49 RBC 4.04 M/mm3 (3.65-5.03) 11/21/16 04:49 Hgb 12.3 gm/dl (10.1-14.3) 11/21/16 04:49 Hct 37.9 % (30.3-42.9) 11/21/16 04:49 MCV 94 fl (79-97) 11/21/16 04:49 MCH 30 pg (28-32) 11/21/16 04:49 MCHC 32 % (30-34) 11/21/16 04:49 RDW 16.1 % (13.2-15.2) H 11/21/16 04:49 Plt Count 79 K/mm3 (140-440) L 11/21/16 04:49 Lymph % (Auto) 32.0 % (13.4-35.0) 11/21/16 04:49 [place] % (Auto) 6.9 % (0.0-7.3) 11/21/16 04:49 Eos % (Auto) 4.5 % (0.0-4.3) H 11/21/16 04:49 Baso % (Auto) 0.6 % (0.0-1.8) 11/21/16 04:49 Lymph # 2.1 K/mm3 (1.2-5.4) 11/21/16 04:49 [place] # 0.5 K/mm3 (0.0-0.8) 11/21/16 04:49 Eos # 0.3 K/mm3 (0.0-0.4) 11/21/16 04:49 Baso # 0.0 K/mm3 (0.0-0.1) 11/21/16 04:49 Seg Neutrophils % 56.0 % (40.0-70.0) 11/21/16 04:49 Seg Neutrophils # 3.7 K/mm3 (1.8-7.7) 11/21/16 04:49 PT 12.4 Sec. (12.2-14.9) 11/19/16 16:21 INR 0.93 (0.87-1.13) 11/19/16 16:21 Sodium 142 mmol/L (137-145) 11/21/16 04:49 Potassium 4.3 mmol/L (3.6-5.0) 11/21/16 04:49 Chloride 106.5 mmol/L (98-107) 11/21/16 04:49 Carbon Dioxide 23 mmol/L (22-30) 11/21/16 04:49 Anion Gap 17 mmol/L 11/21/16 04:49 BUN 15 mg/dL (7-17) 11/21/16 04:49 Creatinine 0.5 mg/dL (0.7-1.2) L 11/21/16 04:49 Estimated GFR > 60 ml/min 11/21/16 04:49 BUN/Creatinine Ratio 30.00 % 11/21/16 04:49 Glucose 93 mg/dL (65-100) 11/21/16 04:49 Calcium 8.7 mg/dL (8.4-10.2) 11/21/16 04:49 Magnesium 1.70 mg/dL (1.7-2.3) 11/19/16 12:37 Total Creatine Kinase 58 units/L (30-135) 11/19/16 12:37 CK-MB (CK-2) 1.3 ng/mL (0.0-4.0) 11/19/16 12:37 CK-MB (CK-2) Rel Index 2.2 (0-4) 11/19/16 12:37 Troponin T < 0.010 ng/mL (0.00-0.029) 11/19/16 20:12 Triglycerides 150 mg/dL (2-149) H 11/20/16 04:30 Cholesterol 116 mg/dL (50-199) 11/20/16 04:30 LDL Cholesterol Direct 57 mg/dL (50-130) 11/20/16 04:30 HDL Cholesterol 29 mg/dL (40-59) L 11/20/16 04:30 Cholesterol/HDL Ratio 4.00 % 11/20/16 04:30 Urine Color Bee (Yellow) 11/19/16 17:23 Urine Turbidity Clear (Clear) 11/19/16 17:23 Urine pH 7.0 (5.0-7.0) 11/19/16 17:23 Ur Specific [place] 1.025 (1.003-1.030) 11/19/16 17:23 Urine Protein 100 mg/dl mg/dL (Negative) 11/19/16 17:23 Urine Glucose (UA) Neg mg/dL (Negative) 11/19/16 17:23 Urine Ketones Tr mg/dL (Negative) 11/19/16 17:23 Urine Blood Neg (Negative) 11/19/16 17:23 Urine Nitrite Neg (Negative) 11/19/16 17:23 Urine Bilirubin Sm (Negative) 11/19/16 17:23 Urine Ictotest Negative (Negative) 11/19/16 17:23 Urine Urobilinogen 2.0 mg/dL (<2.0) 11/19/16 17:23 Ur Leukocyte Esterase Neg (Negative) 11/19/16 17:23 Urine WBC (Auto) 2.0 /HPF (0.0-6.0) 11/19/16 17:23 Urine RBC (Auto) 2.0 /HPF (0.0-6.0) 11/19/16 17:23 U Epithel Cells (Auto) 19.0 /HPF (0-13.0) H 11/19/16 17:23 Urine Mucus 1+ /HPF 11/19/16 17:23 Hepatitis A IgM Ab Non-reactive (NonReactive) 11/19/16 20:12 Hep Bs Antigen Non-reactive (Negative) 11/19/16 20:12 Hep B Core IgM Ab Non-reactive (NonReactive) 11/19/16 20:12 Hepatitis C Antibody Non-reactive (NonReactive) 11/19/16 20:12
[2016-11-21] MEDS: HABITROL TD SCH (10:54)
--- NOTE | 2016-11-21 11:29 | Consultation ---
History of Present Illness Consult date: 11/21/16 Requesting physician: MILLER STALLINGS Reason for Consult: L sided numb Chief complaint: chest pain radiating into L side History of present illness: 51 YO F hx neck fusion x 2 p/w exacerbated chest pain radiating across L side of chest into the L arm and L leg with throbbing pressure "bone cold" feeling. Sx are constant but waxing and waning and have been ongoing for > 6 months. There are no clear aggravating, relieving or temporal factors. Severity is such to cause her concern. She affirms numbness/tingling/weakness. Past History Past Medical History: GERD, heart failure, hypertension Past Surgical History: appendectomy, cholecystectomy, , Other (neck fusion surgery x2 ) Social history: smoking (1/2 ppd cigarettes and marijuana), full code. denies: alcohol abuse, prescription drug abuse, IV drug use Family history: no significant family history Medications and Allergies Allergies Allergy/AdvReac Type Severity Reaction Status Date / Time ketorolac tromethamine AdvReac Unknown Verified 11/19/16 12:34 [From Toradol] Home Medications Medication Instructions Recorded Confirmed Last Taken Type Carvedilol [Coreg] 12.5 mg PO DAILY 11/19/16 11/19/16 11/18/16 History Gabapentin [Neurontin] 600 mg PO BID 11/19/16 11/19/16 11/18/16 History Lisinopril [Zestril TAB] 40 mg PO QDAY 11/19/16 11/19/16 11/18/16 History Zolpidem [Ambien] 10 mg PO QHS 11/19/16 11/19/16 11/18/16 History traMADol [Ultram] 50 mg PO BID 11/19/16 11/19/16 11/18/16 History Active Meds: Active Medications Aspirin (Aspirin) 325 mg PO QDAY [facility] Last Admin: 11/21/16 10:25 Dose: 325 mg Atorvastatin Calcium (Lipitor) 40 mg PO QHS [facility] Last Admin: 11/20/16 21:34 Dose: 40 mg Carvedilol (Coreg) 12.5 mg PO DAILY [facility] Last Admin: 11/21/16 10:25 Dose: 12.5 mg Furosemide (Lasix) 40 mg PO DAILY [facility] Last Admin: 11/21/16 10:24 Dose: 40 mg Gabapentin (Neurontin) 600 mg PO Q8HR [facility] Last Admin: 11/21/16 06:12 Dose: 600 mg Hydromorphone HCl (Dilaudid) 0.5 mg IM Q4H PRN PRN Reason: Pain Last Admin: 11/21/16 10:25 Dose: 0.5 mg Lisinopril (Zestril) 40 mg PO QDAY [facility] Last Admin: 11/21/16 10:25 Dose: 40 mg Nicotine (Habitrol) 14 mg TD QDAY [facility] Last Admin: 11/21/16 10:54 Dose: 14 mg Nitroglycerin (Nitrostat) 0.4 mg SL .Q5MIN PRN PRN Reason: Chest Pain Pantoprazole Sodium (Protonix) 40 mg PO DAILY [facility] Last Admin: 11/21/16 10:25 Dose: 40 mg Potassium Chloride (K-Dur) 40 meq PO DAILY [facility] Last Admin: 11/21/16 10:24 Dose: 40 meq Tramadol HCl (Ultram) 50 mg PO BID [facility] Last Admin: 11/21/16 10:25 Dose: 50 mg Zolpidem Tartrate (Ambien) 10 mg PO QHS [facility] Last Admin: 11/20/16 21:34 Dose: 10 mg Review of Systems All systems: negative Cardiovascular: chest pain Musculoskeletal: neck stiffness, neck pain, shooting arm pain, arm numbness/ tingling, low back pain, shooting leg pain, leg numbness/tingling Neurological: weakness, parathesias, numbness, tingling, motor disturbance, sensory deficit, no paralysis, no seizures, no syncope, no migraines, no convulsions, no change in speech, no changes in smell/taste, no double vision, no burning pain Physical Examination - Vital Signs Vital Signs: Vital Signs Temp Pulse BP Pulse Ox 98.3 F 88 135/69 99 11/19/16 11:50 11/19/16 11:50 11/19/16 11:50 11/19/16 11:50 - Constitutional General appearance: comfortable, chronically ill - EENT EENT: Present: ATNC, PERRL, mucous membranes moist, hearing intact, vision intact - Respiratory Respiratory: Present: chest non-tender, normal breath sounds, no respiratory distress - Cardiovascular Cardiovascular: Present: regular rate Extremities: Present: no peripheral edema bilatateraly, no clubbing, cyanosis, no inflammation, no ischemia or petechiae - Gastrointestinal Gastrointestinal: Present: normoactive bowel sounds, soft, non-distended - Integumentary Integumentary: Present: normal - Neurologic Cranial nerve examination: PERRL, EOMI, VFF, V1/V2/V3 grossly intact, face symmetric, tongue midline, intact, intact shoulder shrug, Intact Vestibulo- ocular r, intact corneal reflex, normal palatal elevation Speech examination: intact Sensorimotor examination: intact Detailed motor examination: grossly full strength in Motor examination - right side: 5/5: biceps, triceps, wrist flexion, wrist extension, surgical aide, hip flexors, knee extensors, dorsiflexion, toe extension (EHL) , plantarflexion Motor examination - left side: 5/5: biceps, triceps, wrist flexion, wrist extension, surgical aide, hip flexors, knee extensors, dorsiflexion, toe extension (EHL) , plantarflexion Detailed sensory examination: intact, light touch, temperature Reflex and gait examination: other (Mata's b/l) Reflexes: 3+: ankle, bicep, knee, tricep - Musculoskeletal Musculoskeletal: Present: no fluid collection, no pain, normal range of motion - Psychiatric Psychiatric: Present: mood/affect appropriate, cooperative Results - Laboratory Findings CBC and BMP: 11/21/16 04:49 11/21/16 04:49 Abnormal Lab Findings: Abnormal Labs 11/19/16 11/20/16 11/20/16 17:23 04:30 04:30 RDW 16.2 H Plt Count 84 L Lymph % (Auto) 38.4 H Eos % (Auto) Creatinine Triglycerides 150 H HDL Cholesterol 29 L U Epithel Cells (Auto) 19.0 H 11/21/16 11/21/16 04:49 04:49 RDW 16.1 H Plt Count 79 L Lymph % (Auto) Eos % (Auto) 4.5 H Creatinine 0.5 L Triglycerides HDL Cholesterol U Epithel Cells (Auto) Assessment and Plan 51 YO F hx neck fusion x 2 p/w 2 days of exacerbated MSK type chest pain radiating across L side of chest into the L arm and L leg but sx have been ongoing for > 6 months per hx w/ affirmed L > R weakness/numbness/tingling. Neuro exam normal symmetric nonfocal intact w/o deficits beyond mild UE hyperreflexia. I suspect chronic cervical myelopathy. Recs: 1. CT Myelogram of C-spine. Unable to do MRI d/t AICD 2. Spine surgery/pain management evaluation as necessary 3. PT/OT 4. Pls notify neurologist field operations supervisor when testing completed for further recs. Today is my last day of service at [facility].
--- NOTE | 2016-11-21 13:33 | Progress Note ---
Assessment and Plan - Patient Problems (1) Atypical chest pain Current Visit: Yes Status: Acute Plan to address problem: Neuro assessment of atypical left-sided symptoms involving the left face, neck, arm, chest and left leg. (2) Thrombocytopenia Current Visit: Yes Status: Acute Plan to address problem: Medical service workup and management of thrombocytopenia. Subjective Date of service: 11/21/16 Interval history: Patient is comfortable in no acute distress. We have recommended neurological evaluation. Objective Vital Signs Temp Pulse Resp BP Pulse Ox 11/21/16 08:00 97.0 F L 70 18 112/55 99 11/21/16 07:39 63 11/21/16 04:25 98.4 F 70 20 152/81 100 11/21/16 00:48 98.2 F 72 16 124/65 100 11/20/16 20:34 98.0 F 70 20 131/79 99 11/20/16 17:35 98.5 F 89 18 128/77 100 11/20/16 13:33 98.0 F 71 18 141/82 99 - Physical Examination General: No Apparent Distress HEENT: Positive: PERRL Neck: Positive: neck supple Cardiac: Positive: Reg Rate and Rhythm Lungs: Positive: Decreased Breath Sounds Neuro: Positive: Grossly Intact Abdomen: Positive: Soft Skin: Positive: Clear Extremities: Absent: edema - Labs and Meds CBC 11/21/16 Range/Units 04:49 WBC 6.6 (4.5-11.0) K/mm3 RBC 4.04 (3.65-5.03) M/mm3 Hgb 12.3 (10.1-14.3) gm/dl Hct 37.9 (30.3-42.9) % Plt Count 79 L (140-440) K/mm3 Lymph # 2.1 (1.2-5.4) K/mm3 [place] # 0.5 (0.0-0.8) K/mm3 Eos # 0.3 (0.0-0.4) K/mm3 Baso # 0.0 (0.0-0.1) K/mm3 Comprehensive Metabolic Panel 11/21/16 Range/Units 04:49 Sodium 142 (137-145) mmol/L Potassium 4.3 (3.6-5.0) mmol/L Chloride 106.5 (98-107) mmol/L Carbon Dioxide 23 (22-30) mmol/L BUN 15 (7-17) mg/dL Creatinine 0.5 L (0.7-1.2) mg/dL Glucose 93 (65-100) mg/dL Calcium 8.7 (8.4-10.2) mg/dL
--- NOTE | 2016-11-21 17:17 | Cat Scan Report ---
Cervical myelogram, post myelogram cervical CT: Patient with prior cervical fusions presented with left arm and leg pain. MRI was not performed due to pacemaker. The patient was placed prone on the fluoroscopic table. The skin was cleansed and draped with 1% lidocaine used for local anesthesia. A puncture was made at the L3 body under fluoroscopic observation with a 22-gauge needle. Non-bloody spinal fluid was obtained prior to injection of 10 cc of Omnipaque-300 contrast. It appeared to be adequately positioned but a significant amount apparently went in the subdural space. Contrast could not be adequately advanced into the cervical region and the study was terminated. Approximately 1/2 hours following the myelogram cervical CT was performed demonstrating adequate contrast in the subarachnoid space. Transverse images are obtained from the skull base into the upper cervical spine with coronal and sagittal 2-D reformatted images. Anterior cervical fusions are present from C4-C6. C3 is moderately compressed. There is irregularity of the articular margins of C3-4 and significant narrowing at the C67 interspace. Significant bony proliferation is identified involving the left apophyseal joint at C2-3 with mild narrowing of the foramen. At C3-4 there is a diffuse disc bulge/herniation with apparent mild compression of the subarachnoid space and possible cervical cord. At C4-5 there is mild uncal spurring but no significant neurocompression. At C5-6 there is a large left uncal spur virtually obliterating the left anterior subarachnoid space with questionable if any deformity of the left cord. There is also uncal spurring at C6-7 but no apparent neurologic compression. Impression: 1. Spinal stenosis with diffuse disc bulge/herniation at C3-4 with mild cord compression. 2. Large left uncal spur at C5-6 with questionable cord involvement. 3. Multilevel anterior cervical fusions and moderate C3 compression.
[2016-11-21] MEDS: AMBIEN PO SCH (22:08)
[2016-11-22] MEDS: DILAUDID IM PRN ×5 (01:37→17:13)
[2016-11-22] MEDS: NEURONTIN PO SCH ×3 (05:43→21:44)
[2016-11-22] MEDS: HABITROL TD SCH (10:32)
[2016-11-22] MEDS: ASPIRIN PO SCH (10:32)
[2016-11-22] MEDS: ULTRAM PO SCH ×2 (10:32→21:44)
[2016-11-22] MEDS: ZESTRIL PO SCH (10:33)
[2016-11-22] MEDS: K-DUR PO SCH (10:33)
[2016-11-22] MEDS: PROTONIX PO SCH (10:33)
[2016-11-22] MEDS: LASIX PO SCH (10:33)
[2016-11-22] MEDS: COREG PO SCH (10:33)
--- NOTE | 2016-11-22 11:25 | Progress Note ---
Assessment and Plan Atypical chest pain Left face, neck, arm and left leg numbness Thrombocytopenia Hx of Nonischemic Cardiomyopathy Presence of AICD Recommendations: Continue medical therapy for her nonischemic cardiomyopathy. Conservative cardiac management. Subjective Date of service: 11/22/16 Interval history: Patient denies chest pain and shortness of breath. Objective Vital Signs Temp Pulse Pulse Resp BP Pulse Ox 11/22/16 08:45 98.3 F 67 18 106/70 100 11/22/16 04:15 98.6 F 76 16 120/60 100 11/22/16 00:40 98.4 F 76 18 136/74 100 11/21/16 22:10 76 11/21/16 20:12 98.2 F 74 18 133/76 100 11/21/16 19:15 70 11/21/16 17:00 97.7 F 64 18 118/72 100 - Physical Examination General: No Apparent Distress HEENT: Positive: PERRL Neck: Positive: trachea midline Cardiac: Positive: Reg Rate and Rhythm Lungs: Positive: Decreased Breath Sounds Neuro: Positive: Grossly Intact
--- NOTE | 2016-11-22 18:19 | Progress Note ---
Assessment and Plan Assessment and plan: Chest pain Unspecified CHF status post AICD - Cardiology was consulted and recommended no cardiac workup at this time, left- sided pain is likely from radiculopathy Bipolar: continue heome medications Neuropathy, with rediculopathy: Cervical myelogram was done - Spinal stenosis with diffuse disc bulge/herniation at C3 to 4 with mild cord compression. -Large left oncologist per at C5 to 6 with questionable cord involvement. -Multilevel anterior cervical fusions and a moderate C3 compressions. Dr. Dai was consulted and an deformity about the CT myelogram and waiting his recommendation. GERD: on pantoprazole Active tobacco use: Counseled about cessation of tobacco use Thrombocytopenia, hepatitis panel negative and I'll put a consult for hematology DVT prophylaxis - SCD because patient of thrombocytopenia Disposition - waiting neurology evaluation. History Interval history: Patient was seen and evaluated this morning, patient complains left-sided arm and leg number and tingling. Hospitalist Physical - Physical exam Narrative exam: Not in cardiopulmonary distress. The patient appeared well nourished and normally developed. Vital signs as documented. Head exam is unremarkable. No scleral icterus . Neck is without jugular venous distension, thyromegaly, or carotid bruits. Lungs are clear to auscultation. Cardiac exam reveals regular rate and Rhythm. First and second heart sounds normal. No murmurs, rubs or gallops. Abdominal exam reveals normal bowel sounds, no masses, no organomegaly and no aortic enlargement. Extremities are nonedematous and both femoral and pedal pulses are normal. BEEF GRADER: Alert and oriented 3. No focal weakness. - Constitutional Vitals: Temp Pulse Resp BP Pulse Ox 98.3 F 62 16 95/50 100 11/22/16 16:07 11/22/16 16:07 11/22/16 16:07 11/22/16 16:07 11/22/16 16:07 General appearance: Present: no acute distress Results - Labs CBC & Chem 7: 11/21/16 04:49 11/21/16 04:49 Labs: Laboratory Last Values WBC 6.6 K/mm3 (4.5-11.0) 11/21/16 04:49 RBC 4.04 M/mm3 (3.65-5.03) 11/21/16 04:49 Hgb 12.3 gm/dl (10.1-14.3) 11/21/16 04:49 Hct 37.9 % (30.3-42.9) 11/21/16 04:49 MCV 94 fl (79-97) 11/21/16 04:49 MCH 30 pg (28-32) 11/21/16 04:49 MCHC 32 % (30-34) 11/21/16 04:49 RDW 16.1 % (13.2-15.2) H 11/21/16 04:49 Plt Count 79 K/mm3 (140-440) L 11/21/16 04:49 Lymph % (Auto) 32.0 % (13.4-35.0) 11/21/16 04:49 [place] % (Auto) 6.9 % (0.0-7.3) 11/21/16 04:49 Eos % (Auto) 4.5 % (0.0-4.3) H 11/21/16 04:49 Baso % (Auto) 0.6 % (0.0-1.8) 11/21/16 04:49 Lymph # 2.1 K/mm3 (1.2-5.4) 11/21/16 04:49 [place] # 0.5 K/mm3 (0.0-0.8) 11/21/16 04:49 Eos # 0.3 K/mm3 (0.0-0.4) 11/21/16 04:49 Baso # 0.0 K/mm3 (0.0-0.1) 11/21/16 04:49 Seg Neutrophils % 56.0 % (40.0-70.0) 11/21/16 04:49 Seg Neutrophils # 3.7 K/mm3 (1.8-7.7) 11/21/16 04:49 PT 12.4 Sec. (12.2-14.9) 11/19/16 16:21 INR 0.93 (0.87-1.13) 11/19/16 16:21 Sodium 142 mmol/L (137-145) 11/21/16 04:49 Potassium 4.3 mmol/L (3.6-5.0) 11/21/16 04:49 Chloride 106.5 mmol/L (98-107) 11/21/16 04:49 Carbon Dioxide 23 mmol/L (22-30) 11/21/16 04:49 Anion Gap 17 mmol/L 11/21/16 04:49 BUN 15 mg/dL (7-17) 11/21/16 04:49 Creatinine 0.5 mg/dL (0.7-1.2) L 11/21/16 04:49 Estimated GFR > 60 ml/min 11/21/16 04:49 BUN/Creatinine Ratio 30.00 % 11/21/16 04:49 Glucose 93 mg/dL (65-100) 11/21/16 04:49 Calcium 8.7 mg/dL (8.4-10.2) 11/21/16 04:49 Magnesium 1.70 mg/dL (1.7-2.3) 11/19/16 12:37 Total Creatine Kinase 58 units/L (30-135) 11/19/16 12:37 CK-MB (CK-2) 1.3 ng/mL (0.0-4.0) 11/19/16 12:37 CK-MB (CK-2) Rel Index 2.2 (0-4) 11/19/16 12:37 Troponin T < 0.010 ng/mL (0.00-0.029) 11/19/16 20:12 Triglycerides 150 mg/dL (2-149) H 11/20/16 04:30 Cholesterol 116 mg/dL (50-199) 11/20/16 04:30 LDL Cholesterol Direct 57 mg/dL (50-130) 11/20/16 04:30 HDL Cholesterol 29 mg/dL (40-59) L 11/20/16 04:30 Cholesterol/HDL Ratio 4.00 % 11/20/16 04:30 Urine Color Bee (Yellow) 11/19/16 17:23 Urine Turbidity Clear (Clear) 11/19/16 17:23 Urine pH 7.0 (5.0-7.0) 11/19/16 17:23 Ur Specific [place] 1.025 (1.003-1.030) 11/19/16 17:23 Urine Protein 100 mg/dl mg/dL (Negative) 11/19/16 17:23 Urine Glucose (UA) Neg mg/dL (Negative) 11/19/16 17:23 Urine Ketones Tr mg/dL (Negative) 11/19/16 17:23 Urine Blood Neg (Negative) 11/19/16 17:23 Urine Nitrite Neg (Negative) 11/19/16 17:23 Urine Bilirubin Sm (Negative) 11/19/16 17:23 Urine Ictotest Negative (Negative) 11/19/16 17:23 Urine Urobilinogen 2.0 mg/dL (<2.0) 11/19/16 17:23 Ur Leukocyte Esterase Neg (Negative) 11/19/16 17:23 Urine WBC (Auto) 2.0 /HPF (0.0-6.0) 11/19/16 17:23 Urine RBC (Auto) 2.0 /HPF (0.0-6.0) 11/19/16 17: U Epithel Cells (Auto) 19.0 /HPF (0-13.0) H 11/19/16 17:23 Urine Mucus 1+ /HPF 11/19/16 17:23 Hepatitis A IgM Ab Non-reactive (NonReactive) 11/19/16 20:12 Hep Bs Antigen Non-reactive (Negative) 11/19/16 20:12 Hep B Core IgM Ab Non-reactive (NonReactive) 11/19/16 20:12 Hepatitis C Antibody Non-reactive (NonReactive) 11/19/16 20:12 Thrombocytopenia
[2016-11-22] MEDS: AMBIEN PO SCH (21:44)
--- NOTE | 2016-11-22 22:14 | Consultation ---
History of Present Illness - Reason for Consult Consult date: 11/22/16 Thrombocytopenia. Requesting physician: ROS BENITEZ - History of Present Illness Thank you for this consult, patient seen/examined, record reviewed, case d/w patient.Kindly asked to see this pleasant female patient for the reasons above. As per account, her main concerns are her CP, and diffuse UE parashesias/ nueropathy, which can be well explained by her CT/myelogram which shows extensive dz, including possible /cord compression/involvement.She states awaiting neurology. She instead urgently needs a neurosurgeon before full compression.She will meanwhile will need some steroids on board. I will do some w/up to r/o rhumatalogical dz which may very well affect plt.She does not drink but smoke, but have a pacemaker.I have reviewed her meds to see if any causative effect to thrombocytopenia.Both tramadol, , coreg, and lisinoril, all have moderate ability to cause Thrombocytopenia.andc their benefit/risk ratio should be reevaluated. Past History Past Medical History: anemia, GERD, heart failure, hypertension Past Surgical History: appendectomy, cholecystectomy, , Other (neck fusion surgery x2 ) Social history: smoking (1/2 ppd cigarettes and marijuana), full code. denies: alcohol abuse, prescription drug abuse, IV drug use Family history: no significant family history Medications and Allergies Allergies Allergy/AdvReac Type Severity Reaction Status Date / Time ketorolac tromethamine AdvReac Unknown Verified 11/19/16 12:34 [From Toradol] Home Medications Medication Instructions Recorded Confirmed Last Taken Type Carvedilol [Coreg] 12.5 mg PO DAILY 11/19/16 11/19/16 11/18/16 History Gabapentin [Neurontin] 600 mg PO BID 11/19/16 11/19/16 11/18/16 History Lisinopril [Zestril TAB] 40 mg PO QDAY 11/19/16 11/19/16 11/18/16 History Zolpidem [Ambien] 10 mg PO QHS 11/19/16 11/19/16 11/18/16 History traMADol [Ultram] 50 mg PO BID 11/19/16 11/19/16 11/18/16 History oxyCODONE /ACETAMINOPHEN [Percocet 1 - 2 tab PO Q6HR PRN 11/22/16 11/22/1611/19 History 5/325] Active Meds: Active Medications Aspirin (Aspirin) 325 mg PO QDAY [facility] Last Admin: 11/22/16 10:32 Dose: 325 mg Atorvastatin Calcium (Lipitor) 40 mg PO QHS [facility] Last Admin: 11/22/16 21:44 Dose: 40 mg Carvedilol (Coreg) 12.5 mg PO DAILY [facility] Last Admin: 11/22/16 10:33 Dose: 12.5 mg Furosemide (Lasix) 40 mg PO DAILY [facility] Last Admin: 11/22/16 10:33 Dose: 40 mg Gabapentin (Neurontin) 600 mg PO Q8HR [facility] Last Admin: 11/22/16 21:44 Dose: 600 mg Lisinopril (Zestril) 40 mg PO QDAY [facility] Last Admin: 11/22/16 10:33 Dose: 40 mg Nicotine (Habitrol) 14 mg TD QDAY [facility] Last Admin: 11/22/16 10:32 Dose: 14 mg Nitroglycerin (Nitrostat) 0.4 mg SL .Q5MIN PRN PRN Reason: Chest Pain Oxycodone HCl (Roxicodone) 5 mg PO Q8H PRN PRN Reason: Pain, Moderate (4-6) Oxycodone/Acetaminophen (Percocet 5/325) 1 tab PO Q8H PRN PRN Reason: Pain, Moderate (4-6) Pantoprazole Sodium (Protonix) 40 mg PO DAILY [facility] Last Admin: 11/22/16 10:33 Dose: 40 mg Potassium Chloride (K-Dur) 40 meq PO DAILY [facility] Last Admin: 11/22/16 10:33 Dose: 40 meq Tramadol HCl (Ultram) 50 mg PO BID [facility] Last Admin: 11/22/16 21:44 Dose: 50 mg Zolpidem Tartrate (Ambien) 10 mg PO QHS [facility] Last Admin: 11/22/16 21:44 Dose: 10 mg Review of Systems Constitutional: chronic pain Breasts: deferred Musculoskeletal: neck pain, shooting arm pain, arm numbness/tingling Exam - Constitutional Vitals: Temp Pulse Resp BP Pulse Ox 98.1 F 60 20 117/70 98 11/22/16 20:05 11/22/16 20:05 11/22/16 20:05 11/22/16 20:05 11/22/16 20:05 General appearance: Present: mild distress, well-nourished - EENT Eyes: Present: PERRL ENT: hearing intact, clear oral mucosa - Neck Neck: Present: supple, normal ROM - Respiratory Respiratory effort: normal Respiratory: bilateral: CTA - Cardiovascular Heart Sounds: Present: S1 & S2. Absent: rub, click - Extremities Extremities: pulses symmetrical, No edema Peripheral Pulses: within normal limits - Abdominal General gastrointestinal: Present: soft, non-tender, non-distended, normal bowel sounds Female genitourinary: Present: deferred - Rectal Rectal Exam: deferred - Integumentary Integumentary: Present: clear, warm, dry - Musculoskeletal Musculoskeletal: gait normal, strength equal bilaterally - Psychiatric Psychiatric: appropriate mood/affect, intact judgment & insight - Neurologic Neurologic: CNII-XII intact, moves all extremities Results - Labs CBC & Chem 7: 11/21/16 04:49 11/21/16 04:49 Assessment and Plan - Patient Problems (1) AICD (automatic cardioverter/defibrillator) present Current Visit: Yes Status: Acute Plan to address problem: deffer to cardiology. (2) Atypical chest pain Current Visit: Yes Status: Acute Plan to address problem: deffer to cardiology. (3) Thrombocytopenia Current Visit: Yes Status: Acute Plan to address problem: see w/up. (4) Neck pain Current Visit: Yes Status: Acute Plan to address problem: Due to her spinal dz. (5) Arm numbness left Current Visit: Yes Status: Acute Plan to address problem: same as below. (6) Bilateral arm numbness and tingling while sleeping Current Visit: Yes Status: Acute Plan to address problem: This is due to spinal dz, see notes.
[2016-11-22] MEDS ORDERED: DECADRON 20 MG in NACL 0.9% 50 ML IV ONE (23:00)
[2016-11-22] MEDS: ROXICODONE PO PRN (23:33)
[2016-11-22] MEDS: PERCOCET 5/325 PO PRN (23:33)
[2016-11-23] MEDS: NEURONTIN PO SCH (05:23)
[2016-11-23] MEDS ORDERED: DECADRON IV SCH ×2 (06:00)
[2016-11-23 06:08] LABS: Hematocrit 42.5 % (30.3-42.9); Hemoglobin 13.8 gm/dl (10.1-14.3); Mean Corpuscular HGB Conc 33 % (30-34); Mean Corpuscular Hemoglobin 30 pg (28-32); Mean Corpuscular Volume 93 fl (79-97); Red Blood Count 4.58 M/mm3 (3.65-5.03); Red Cell Distribution Width 15.4 % (13.2-15.2); White Blood Count 7.4 K/mm3 (4.5-11.0)
[2016-11-23 06:12] LABS: Platelet Count 90 K/mm3 (140-440)
[2016-11-23 06:23] LABS: Anion Gap 18 mmol/L; BUN/Creatinine Ratio 31.25; Blood Urea Nitrogen 25 mg/dL (7-17); Carbon Dioxide 25 mmol/L (22-30); Chloride 101.1 mmol/L (98-107); Glucose 156 mg/dL (65-100); Sodium 139 mmol/L (137-145)
[2016-11-23 06:53] LABS: Basophils % (Manual) 0 % (0.0-1.8); Blastocytes % (Manual) 0 %; Eosinophils % (Manual) 0 % (0.0-4.3)
[2016-11-23 06:54] LABS: Diff Status Complete; Platelet Estimate Appears Decreased; Target Cells Few
[2016-11-23] MEDS: ROXICODONE PO PRN (07:15)
[2016-11-23] MEDS: PERCOCET 5/325 PO PRN (07:15)
[2016-11-23] MEDS: HABITROL TD SCH (10:10)
[2016-11-23] MEDS: ZESTRIL PO SCH (10:14)
[2016-11-23] MEDS: PROTONIX PO SCH (10:14)
[2016-11-23] MEDS: ULTRAM PO SCH (10:14)
[2016-11-23] MEDS: ASPIRIN PO SCH (10:14)
[2016-11-23] MEDS: K-DUR PO SCH (10:14)
[2016-11-23] MEDS: COREG PO SCH (10:16)
[2016-11-23] MEDS: LASIX PO SCH (10:16)
--- NOTE | 2016-11-23 10:43 | Progress Note ---
Assessment and Plan Atypical chest pain Neuropathy myelogram reports: -spinal stenosis with diffuse disc bulge/herniation at C3 to 4 with mild cord compression. -large left uncal spur at C5 to 6 with questionable cord involvement. -multilevel anterior cervical fusions and a moderate C3 compressions. Thrombocytopenia Hx of Nonischemic Cardiomyopathy Presence of AICD Recommendations: Continue medical therapy for her nonischemic cardiomyopathy. Conservative cardiac management. Subjective Date of service: 11/23/16 Interval history: Patient denies chest pain and shortness of breath. Objective Vital Signs Temp Pulse Resp BP Pulse Ox 11/23/16 08:48 97.8 F 78 20 130/63 98 11/23/16 04:40 97.6 F 74 20 110/68 94 11/23/16 02:59 62 11/23/16 00:24 98.4 F 86 18 117/70 97 11/22/16 20:05 98.1 F 60 20 117/70 98 11/22/16 16:07 98.3 F 62 16 95/50 100 11/22/16 12:14 98.2 F 18 L 18 99/68 100 - Physical Examination General: No Apparent Distress HEENT: Positive: PERRL Neck: Positive: trachea midline Cardiac: Positive: Reg Rate and Rhythm Neuro: Positive: Grossly Intact Extremities: Absent: edema - Labs and Meds Cardiac Enzymes 11/23/16 Range/Units 00:15 Lactate Dehydrogenase 193 H (91-180) units/L CBC 11/23/16 Range/Units 05:18 WBC 7.4 (4.5-11.0) K/mm3 RBC 4.58 (3.65-5.03) M/mm3 Hgb 13.8 (10.1-14.3) gm/dl Hct 42.5 (30.3-42.9) % Plt Count 90 L (140-440) K/mm3 Comprehensive Metabolic Panel 11/23/16 Range/Units 05:18 Sodium 139 (137-145) mmol/L Potassium 5.0 (3.6-5.0) mmol/L Chloride 101.1 (98-107) mmol/L Carbon Dioxide 25 (22-30) mmol/L BUN 25 H (7-17) mg/dL Creatinine 0.8 D (0.7-1.2) mg/dL Glucose 156 H (65-100) mg/dL Calcium 9.0 (8.4-10.2) mg/dL
--- NOTE | 2016-11-23 11:57 | Consultation ---
History of Present Illness - Reason for Consult Consult date: 11/23/16 cervical spine cord lesion - History of Present Illness I have reviewed the imaging studies with the radiologists and the patient can be managed by medical therapy and I am not recommending surgery at this point I have directed her to follow up in the office Past History Past Medical History: anemia, GERD, heart failure, hypertension Past Surgical History: appendectomy, cholecystectomy, , Other (neck fusion surgery x2 ) Social history: smoking (1/2 ppd cigarettes and marijuana), full code. denies: alcohol abuse, prescription drug abuse, IV drug use Family history: no significant family history Medications and Allergies Allergies Allergy/AdvReac Type Severity Reaction Status Date / Time ketorolac tromethamine AdvReac Unknown Verified 11/19/16 12:34 [From Toradol] Home Medications Medication Instructions Recorded Confirmed Last Taken Type Carvedilol [Coreg] 12.5 mg PO DAILY 11/19/16 11/19/16 11/18/16 History Gabapentin [Neurontin] 600 mg PO BID 11/19/16 11/19/16 11/18/16 History Lisinopril [Zestril TAB] 40 mg PO QDAY 11/19/16 11/19/16 11/18/16 History Zolpidem [Ambien] 10 mg PO QHS 11/19/16 11/19/16 11/18/16 History traMADol [Ultram] 50 mg PO BID 11/19/16 11/19/16 11/18/16 History oxyCODONE /ACETAMINOPHEN [Percocet 1 - 2 tab PO Q6HR PRN 11/22/16 11/22/1611/19 History 5/325] Active Meds: Active Medications Aspirin (Aspirin) 325 mg PO QDAY [facility] Last Admin: 11/23/16 10:14 Dose: 325 mg Atorvastatin Calcium (Lipitor) 40 mg PO QHS [facility] Last Admin: 11/22/16 21:44 Dose: 40 mg Carvedilol (Coreg) 12.5 mg PO DAILY [facility] Last Admin: 11/23/16 10:16 Dose: 12.5 mg Dexamethasone (Decadron) 4 mg IV Q8H [facility] Last Admin: 11/23/16 05:23 Dose: 4 mg Furosemide (Lasix) 40 mg PO DAILY [facility] Last Admin: 11/23/16 10:16 Dose: 40 mg Gabapentin (Neurontin) 600 mg PO Q8HR [facility] Last Admin: 11/23/16 05:23 Dose: 600 mg Lisinopril (Zestril) 40 mg PO QDAY [facility] Last Admin: 11/23/16 10:14 Dose: 40 mg Nicotine (Habitrol) 14 mg TD QDAY [facility] Last Admin: 11/23/16 10:10 Dose: 14 mg Nitroglycerin (Nitrostat) 0.4 mg SL .Q5MIN PRN PRN Reason: Chest Pain Oxycodone HCl (Roxicodone) 5 mg PO Q8H PRN PRN Reason: Pain, Moderate (4-6) Last Admin: 11/23/16 07:15 Dose: 5 mg Oxycodone/Acetaminophen (Percocet 5/325) 1 tab PO Q8H PRN PRN Reason: Pain, Moderate (4-6) Last Admin: 11/23/16 07:15 Dose: 1 tab Pantoprazole Sodium (Protonix) 40 mg PO DAILY [facility] Last Admin: 11/23/16 10:14 Dose: 40 mg Potassium Chloride (K-Dur) 40 meq PO DAILY [facility] Last Admin: 11/23/16 10:14 Dose: 40 meq Tramadol HCl (Ultram) 50 mg PO BID [facility] Last Admin: 11/23/16 10:14 Dose: 50 mg Zolpidem Tartrate (Ambien) 10 mg PO QHS [facility] Last Admin: 11/22/16 21:44 Dose: 10 mg Exam - Constitutional Vitals: Temp Pulse Resp BP Pulse Ox 97.8 F 78 20 130/63 98 11/23/16 08:48 11/23/16 08:48 11/23/16 08:48 11/23/16 08:48 11/23/16 08:48 Results - Labs CBC & Chem 7: 11/23/16 05:18 11/23/16 05:18 Labs: Abnormal lab results 11/22/16 11/23/16 11/23/16 Range/Units 23:23 00:15 05:18 RDW 15.4 H (13.2-15.2) % Plt Count 90 L (140-440) K/mm3 Seg Neuts % (Manual) 91.0 H (40.0-70.0) % Lymphocytes % (Manual) 6.0 L (13.4-35.0) % Lymphocytes # (Manual) 0.4 L (1.2-5.4) K/mm3 D-Dimer 783.04 H (0-234) ng/mlDDU BUN (7-17) mg/dL Glucose (65-100) mg/dL Lactate Dehydrogenase 193 H (91-180) units/L 11/23/16 Range/Units 05:18 RDW (13.2-15.2) % Plt Count (140-440) K/mm3 Seg Neuts % (Manual) (40.0-70.0) % Lymphocytes % (Manual) (13.4-35.0) % Lymphocytes # (Manual) (1.2-5.4) K/mm3 D-Dimer (0-234) ng/mlDDU BUN 25 H (7-17) mg/dL Glucose 156 H (65-100) mg/dL Lactate Dehydrogenase (91-180) units/L
[2016-11-23 12:10] VITALS: BP 123/82
--- NOTE | 2016-11-23 13:18 | Discharge Summary ---
Providers - Providers Date of Admission: 11/19/16 16:58 Date of discharge: 11/23/16 Attending physician: ROS BENITEZ MD 11/20/16 12:15 Consult to Physician [CONS] Routine Consulting Provider: MOON JEAN BAPTISTE Reason For Exam: left sided numbness Place consult to:: Dr. Jean Baptiste Notified:: Sravanthi LPN Phone number called:: [phone] Was contact made?: Yes If yes, spoke with:: Voicemail left for Bella Schaefer Time called:: 17:27 11/21/16 10:48 Consult to Physician [CONS] Routine Consulting Provider: CORA DAI Reason For Exam: left sided numbness Place consult to:: neuro Notified:: office Phone number called:: [phone] Was contact made?: Yes If yes, spoke with:: iraida Time called:: 10:52 11/22/16 18:22 Consult to Physician [CONS] Routine Consulting Provider: JOSELIN DAMIAN Reason For Exam: thrombocytopenia Place consult to:: Hematology Notified:: YES Was contact made?: Yes If yes, spoke with:: DR DAMIAN Time called:: 18:38 Primary care physician: HOUSEHOLD APPLIANCE INSTALLER Hospitalization Reason for admission: left-sided chest, arm and leg pain Condition: Stable Pertinent studies: CT myelogram #1. Spinal stenosis with diffuse disc bulge/herniation at C3 to 4 with mild cord compression. #2. Large left uncal spur at C5 to 6 with questionable cord involvement. #3. Multilevel anterior cervical fusions and moderate C3 compression. Hospital course: 51-year-old female with past medical history significant for CHF status post AICD, GERD, hypertension, bipolar, neuropathy presented to the emergency department complaining of chest pain for the last 3 days. Chest pain midsternal, 8/10 intensity, crampy, associated with shortness of breath, diaphoresis and clammy, with radiation to the left arm. Patient denied palpitation, shortness of breath, leg swelling. Patient has cardiac cath at another hospital a year ago. Cardiology was consulted and recommended no further cardiac workup because or symptoms looks like from her cervical fusion. Neurology was consulted and CT myelogram was done the result as stated above. Dr. Dai reviewed and recommend outpatient follow up. Patient is scheduled to see Dr Dai as an O/P F/U. Patient was hemodynamically stable at the time of discharge. Patient's medications were reviewed and updated as the time of discharge. Patient's questions and concerns were addressed as a bedside. Disposition: DC-01 TO HOME OR SELFCARE Time spent for discharge: 31 minutes - Discharge Diagnoses (1) AICD (automatic cardioverter/defibrillator) present Status: Acute (2) Arm numbness left Status: Acute (3) Atypical chest pain Status: Acute (4) Chest pain Status: Acute Qualifiers: Chest pain type: C Ischemic chest pain type: I (5) Hypokalemia Status: Acute (6) Muscle cramp Status: Acute (7) Neck pain Status: Acute (8) Thrombocytopenia Status: Acute Core Measure Documentation - Palliative Care Palliative Care/ Comfort Measures: Not Applicable - Core Measures Any of the following diagnoses?: none Exam - Physical Exam Narrative exam: Not in cardiopulmonary distress. The patient appeared well nourished and normally developed. Vital signs as documented. Head exam is unremarkable. No scleral icterus . Neck is without jugular venous distension, thyromegaly, or carotid bruits. Lungs are clear to auscultation. Cardiac exam reveals regular rate and Rhythm. First and second heart sounds normal. No murmurs, rubs or gallops. Abdominal exam reveals normal bowel sounds, no masses, no organomegaly and no aortic enlargement. Extremities are nonedematous and both femoral and pedal pulses are normal. DOCUMENTATION COORDINATOR: Alert and oriented 3. No focal weakness. - Constitutional Vitals: Temp Pulse Resp BP Pulse Ox 97.5 F L 66 18 123/82 96 11/23/16 12:08 11/23/16 12:08 11/23/16 12:08 11/23/16 12:08 11/23/16 12:08 Plan Activity: no restrictions Weight Bearing Status: Full Weight Bearing Diet: low cholesterol, low salt Follow up with: PRIMARY CARE, [Primary Care Provider] - 3-5 Days JOSELIN DAMIAN DO [Staff Physician] - 7 Days CORA DAI MD [Staff Physician] - 7 Days Prescriptions: AtorvaSTATin [Lipitor] 40 mg PO QHS #30 tablet Zolpidem [Ambien] 10 mg PO QHS #15 tablet Carvedilol [Coreg] 12.5 mg PO DAILY #60 tablet Furosemide [Lasix TAB] 20 mg PO DAILY #30 tablet Gabapentin [Neurontin] 600 mg PO BID #60 tablet Lisinopril [Zestril TAB] 40 mg PO QDAY #30 tablet oxyCODONE /ACETAMINOPHEN [Percocet 5/325 mg] 2 tab PO Q6HR PRN #20 tablet PRN Reason: Pain Pantoprazole [Protonix TAB] 40 mg PO DAILY #30 tablet traMADol [Ultram 50 MG tab] 50 mg PO BID #20 tablet
--- NOTE | 2016-11-24 01:38 | Consultation ---
I have reviewed the cervical myelogram with Dr. Zepeda and the cervical myelogram does show an intact fusion from C4 through C7. This is a three level cervical fusion with an intact fusion of all elements. The level below the fusion has mild degree of osteo degenerative disease as does the level above. There is a slight spur at C5-C6 on the left, but this obviously is not compressing the spinal cord. There is a slight midline spur at the C3-C4 level, but it should be noted that at this level there is relatively little motion in the cervical spine and this is not compressing the cervical spinal cord from my review or Dr. Zepeda' opinion either. Therefore, I think this condition can be treated simply with medical therapy. PLAN: To follow the patient in the office. She may be discharged at this point. JOB# [id number] DREA/GEOVANI
--- NOTE | 2016-11-28 08:24 | Query- Chest Pain ---
Vicky Cuadra Radha Date: 11/28/16 Kiran/CDS:____Opal / Bebeto Phone#:___[phone] Exercise your independent professional judgment when responding to query. Questions asked do not imply a particular answer is desired or expected. We greatly appreciate your clarification on this issue. Clinical Documentation States: 51 year old female was admitted on 11/19/16. The discharge summary states " 51-year-old female with past medical history significant for CHF status post AICD, GERD, hypertension, bipolar, neuropathy presented to the emergency department complaining of chest pain for the last 3 days. - Discharge Diagnoses (3) Atypical chest pain Status: Acute (4) Chest pain Status: Acute Qualifiers: Chest pain type: C Ischemic chest pain type: I " Please document the etiology of Chest Pain: [ ] Myocardial Infarction [ ] Pneumonia [ ] Mediastinitis [x ] Costochondritis [ ] Pulmonary Embolism [ ] Coronary Artery Disease [ ] GERD [ ] Other: [ ] Comment/Explanation: Present on Admission: [x ] Yes (Y) [ ] Clinically undeterminable (W) [ ] No(N) Please document response in your Progress Notes and/or Discharge Summary and indicate if the condition was present on admission. DANIEL
== END 2016-11-23 14:37 | disposition home health service (06) | DRG 206 ==
LOC: ED 11:33 → 4A 16:58
PROVIDERS: ADMIT Internal Medicine; ATTEND Internal Medicine
DX: M94.0 Chondrocostal junction syndrome [Tietze] (principal); K21.9 Gastro-esophageal reflux disease without esophagitis; I42.9 Cardiomyopathy, unspecified; M48.02 Spinal stenosis, cervical region; I50.9 Heart failure, unspecified; J44.9 Chronic obstructive pulmonary disease, unspecified; F31.9 Bipolar disorder, unspecified; Z95.810 Presence of automatic (implantable) cardiac defibrillator; Z88.8 Allergy status to other drugs, medicaments and biological substances; E87.6 Hypokalemia; D69.6 Thrombocytopenia, unspecified; G62.9 Polyneuropathy, unspecified; F17.210 Nicotine dependence, cigarettes, uncomplicated; M79.602 Pain in left arm; M79.605 Pain in left leg; M54.2 Cervicalgia
CPT/HCPCS: 36415; 62302; 70450; 71010; 72125; 80048; 80061; 80074; 81001; 82550; 82553; 82607; 82747; 83615; 83735; 83921; 84132; 84484; 85007; 85025; 85379; 85384; 85610; 85613; 85652; 86038; 86618; 93005; 93010; 96374; 96375; A9270-GY; J1100; J1170; J2270; J2405; Q9967

== ENCOUNTER 2017-02-14 12:45 | Emergency (ER) | payer MEDICAID ==
--- NOTE | 2017-02-14 13:47 | Emergency Department Report ---
ED General Adult HPI - General Chief complaint: Chest Pain Stated complaint: LEFT ARM AND SHOULDER PAIN Time Seen by Provider: 02/14/17 13:30 Source: patient, RN notes reviewed, old records reviewed Mode of arrival: Ambulatory Limitations: No Limitations - History of Present Illness Initial comments: This is a 51-year-old female, the patient is previously unknown to this provider. Patient has a history of confirmed CT myelogram demonstrating spinal stenosis with disc bulging herniation at C3/C4, multilevel anterior cervical fusions with history of C3 compressions, thrombocytopenia, nonischemic cardiomyopathy, cardiology has seen the patient as recently as November 2016 of this year, has previous ejection fraction of approximately 20%, has an ICD, although does not know what device she has. The patient presented to the ER today with EMS with a complaint of left arm pain that radiates down to the left elbow. This pain is sharp. It increases with palpation and range of motion. Decreases with rest. There is no weakness , there is no bladder or bowel retention or incontinence, and there is no saddle anesthesia. EMS records are not available at this time, patient denies chest pain, shortness of breath, vomiting diaphoresis. At the end of her history and physical, the patient is accompanied by a friend/ family member, who indicates the patient passed out. Patient has no recollection of this. There is no leg pain. There is no leg swelling. No recent trips greater than 4 hours, and no recent hospital admissions. There is no hematemesis of bright red blood per rectum, patient reports that she is not now, and she further reports that she does not take control tablets. There is no history of DVT or pulmonary in was that she is aware. -: Gradual Location: left, upper extremity Radiation: extremity Quality: burning, aching Consistency: intermittent Improves with: rest Worsens with: movement Associated Symptoms: syncope. denies: chest pain - Related Data Home Medications Medication Instructions Recorded Confirmed Last Taken Gabapentin [Neurontin] 400 mg PO TID 02/14/17 02/14/17 Unknown Previous Rx's Medication Instructions Recorded Last Taken Type AtorvaSTATin [Lipitor] 40 mg PO QHS #30 tablet 11/23/16 Unknown Rx Carvedilol [Coreg] 12.5 mg PO DAILY #60 tablet 11/23/16 Unknown Rx Lisinopril [Zestril TAB] 40 mg PO QDAY #30 tablet 11/23/16 Unknown Rx Zolpidem [Ambien] 10 mg PO QHS #15 tablet 11/23/16 Unknown Rx traMADol [Ultram 50 MG tab] 50 mg PO BID #20 tablet 11/23/16 Unknown Rx Allergies Allergy/AdvReac Type Severity Reaction Status Date / Time ketorolac tromethamine AdvReac Unknown Verified 11/19/16 12:34 [From Toradol] ED Review of Systems ROS: Stated complaint: LEFT ARM AND SHOULDER PAIN Other details as noted in HPI Constitutional: denies: malaise ENT: denies: epistaxis Respiratory: denies: cough Cardiovascular: syncope Gastrointestinal: denies: vomiting Genitourinary: denies: urgency, dysuria Musculoskeletal: arthralgia, myalgia Neurological: as per HPI, paresthesias ED Past Medical Hx - Past Medical History Previous Medical History?: Yes Hx Hypertension: Yes Hx Congestive Heart Failure: Yes Hx GERD: Yes Hx Psychiatric Treatment: Yes (bipolar) Hx COPD: Yes - Surgical History Hx Internal Defibrillator: Yes Hx Appendectomy: Yes - Social History Smoking Status: Current Every Day Smoker Substance Use Type: None - Medications Home Medications: Home Medications Medication Instructions Recorded Confirmed Last Taken Type AtorvaSTATin [Lipitor] 40 mg PO QHS #30 tablet 11/23/16 02/14/17 Unknown Rx Carvedilol [Coreg] 12.5 mg PO DAILY #60 tablet 11/23/16 02/14/17 Unknown Rx Lisinopril [Zestril TAB] 40 mg PO QDAY #30 tablet 11/23/16 02/14/17 Unknown Rx Zolpidem [Ambien] 10 mg PO QHS #15 tablet 11/23/16 02/14/17 Unknown Rx traMADol [Ultram 50 MG tab] 50 mg PO BID #20 tablet 11/23/16 02/14/17 Unknown Rx Gabapentin [Neurontin] 400 mg PO TID 02/14/17 02/14/17 Unknown History ED Physical Exam - General Limitations: No Limitations General appearance: alert, in no apparent distress - Head Head exam: Present: atraumatic, normocephalic - Eye Eye exam: Present: normal appearance, PERRL, EOMI, other (visual acuity intact to finger counting, color perception, reading at a close distance). Absent: nystagmus - ENT ENT exam: Present: normal exam, normal orophraynx, mucous membranes moist, normal external ear exam - Neck Neck exam: Present: normal inspection, full ROM. Absent: tenderness, meningismus - Respiratory Respiratory exam: Present: normal lung sounds bilaterally. Absent: respiratory distress, wheezes, rales, rhonchi, stridor, chest wall tenderness, accessory muscle use, decreased breath sounds, prolonged expiratory - Cardiovascular Cardiovascular Exam: Present: regular rate, normal rhythm, normal heart sounds. Absent: bradycardia, tachycardia, irregular rhythm, systolic murmur, diastolic murmur, rubs, gallop - GI/Abdominal GI/Abdominal exam: Present: soft, normal bowel sounds. Absent: distended, tenderness, guarding, rebound, rigid, pulsatile mass - Extremities Exam Extremities exam: Present: normal inspection, full ROM, normal capillary refill. Absent: pedal edema, joint swelling, calf tenderness - Back Exam Back exam: Present: normal inspection, full ROM. Absent: tenderness, CVA tenderness (R), CVA tenderness (L), muscle spasm, paraspinal tenderness, vertebral tenderness - Neurological Exam Neurological exam: Present: alert (downgoing plantar reflexes in the bilateral lower extremities, extensor hallucis longus is intact in the bilateral lower extremities), oriented X3, normal gait, reflexes normal, other (Extraocular movements intact. Tongue midline. No facial droop. Facial sensation intact to light touch in the V1, V2, V3 distribution bilaterally. 5 and 5 strength in 4 extremities.. Sensation is intact to light touch in 4 extremities.). Absent : motor sensory deficit (sensation intact to light touch, pinprick in the upper and lower extremities,) - Psychiatric Psychiatric exam: Present: normal affect, normal mood - Skin Skin exam: Present: warm, dry, intact, normal color. Absent: rash ED Course Vital Signs 02/14/17 02/14/17 02/14/17 13:12 13:13 13:14 Temperature Pulse Rate 84 93 H 96 H Respiratory 17 14 12 Rate Blood Pressure 157/80 157/80 Blood Pressure [Left] O2 Sat by Pulse 100 99 99 Oximetry 02/14/17 02/14/17 02/14/17 13:16 13:18 13:19 Temperature Pulse Rate 76 84 93 H Respiratory 17 13 16 Rate Blood Pressure 46/31 43/17 43/17 Blood Pressure [Left] O2 Sat by Pulse 99 99 98 Oximetry 02/14/17 02/14/17 02/14/17 13:20 13:22 13:24 Temperature Pulse Rate 85 86 82 Respiratory 17 20 20 Rate Blood Pressure 43/17 43/17 43/17 Blood Pressure [Left] O2 Sat by Pulse 99 98 98 Oximetry 02/14/17 02/14/17 02/14/17 13:26 13:28 13:30 Temperature Pulse Rate 81 84 83 Respiratory 16 16 12 Rate Blood Pressure 43/17 43/17 43/17 Blood Pressure [Left] O2 Sat by Pulse 98 99 99 Oximetry 02/14/17 02/14/17 02/14/17 13:32 13:34 13:40 Temperature Pulse Rate 87 92 H Respiratory 19 18 Rate Blood Pressure 43/17 43/17 43/17 Blood Pressure [Left] O2 Sat by Pulse 99 99 98 Oximetry 02/14/17 02/14/17 02/14/17 13:42 13:44 13:46 Temperature Pulse Rate 87 80 Respiratory 22 16 Rate Blood Pressure 43/17 43/17 138/74 Blood Pressure [Left] O2 Sat by Pulse 99 98 98 Oximetry 02/14/17 02/14/17 02/14/17 13:48 13:50 13:52 Temperature Pulse Rate 82 82 84 Respiratory 16 18 14 Rate Blood Pressure 138/74 138/74 138/74 Blood Pressure [Left] O2 Sat by Pulse 100 100 100 Oximetry 02/14/17 02/14/17 02/14/17 13:54 13:56 13:58 Temperature Pulse Rate 99 H 93 H 74 Respiratory 14 13 16 Rate Blood Pressure 138/74 138/74 138/74 Blood Pressure [Left] O2 Sat by Pulse 99 99 99 Oximetry 02/14/17 02/14/17 02/14/17 14:00 14:01 14:02 Temperature Pulse Rate 76 81 83 Respiratory 16 18 20 Rate Blood Pressure 147/80 147/80 147/80 Blood Pressure [Left] O2 Sat by Pulse 99 Oximetry 02/14/17 02/14/17 02/14/17 14:04 14:05 14:06 Temperature Pulse Rate 82 101 H Respiratory 19 17 Rate Blood Pressure 147/80 147/80 147/80 Blood Pressure [Left] O2 Sat by Pulse 99 98 Oximetry 02/14/17 02/14/17 02/14/17 14:16 14:18 14:20 Temperature Pulse Rate 86 82 Respiratory 14 12 Rate Blood Pressure 147/80 147/80 147/80 Blood Pressure [Left] O2 Sat by Pulse 99 100 99 Oximetry 02/14/17 02/14/17 02/14/17 14:22 14:24 14:26 Temperature 98.3 F Pulse Rate 93 H 80 82 Respiratory 19 16 22 Rate Blood Pressure 147/80 147/80 147/80 Blood Pressure 147/80 [Left] O2 Sat by Pulse 99 99 100 Oximetry 02/14/17 02/14/17 02/14/17 14:28 14:30 14:32 Temperature Pulse Rate 77 85 101 H Respiratory 17 18 18 Rate Blood Pressure 147/80 147/80 147/80 Blood Pressure [Left] O2 Sat by Pulse 99 100 96 Oximetry 02/14/17 02/14/17 02/14/17 14:34 14:36 14:38 Temperature Pulse Rate 98 H 76 81 Respiratory 18 12 21 Rate Blood Pressure 147/80 147/80 147/80 Blood Pressure [Left] O2 Sat by Pulse 98 100 99 Oximetry 02/14/17 02/14/17 02/14/17 14:40 14:42 14:44 Temperature Pulse Rate 76 90 76 Respiratory 13 21 17 Rate Blood Pressure 147/80 147/80 43/17 Blood Pressure [Left] O2 Sat by Pulse 100 100 100 Oximetry 02/14/17 02/14/17 02/14/17 14:46 14:48 14:50 Temperature Pulse Rate 80 72 76 Respiratory 15 15 15 Rate Blood Pressure 43/17 43/17 43/17 Blood Pressure [Left] O2 Sat by Pulse 100 100 100 Oximetry 02/14/17 02/14/17 02/14/17 14:52 14:54 14:56 Temperature Pulse Rate 77 76 96 H Respiratory 21 14 14 Rate Blood Pressure 43/17 147/80 147/80 Blood Pressure [Left] O2 Sat by Pulse 100 100 100 Oximetry 02/14/17 02/14/17 02/14/17 14:58 14:59 15:03 Temperature Pulse Rate 88 87 Respiratory 20 21 Rate Blood Pressure 147/80 147/80 147/80 Blood Pressure [Left] O2 Sat by Pulse 89 95 73 L Oximetry 02/14/17 02/14/17 02/14/17 15:22 15:31 15:32 Temperature Pulse Rate 78 88 Respiratory 22 22 Rate Blood Pressure 147/80 147/80 147/80 Blood Pressure [Left] O2 Sat by Pulse Oximetry 02/14/17 02/14/17 02/14/17 15:34 15:36 15:38 Temperature Pulse Rate 74 73 73 Respiratory 18 18 14 Rate Blood Pressure 147/80 147/80 147/80 Blood Pressure [Left] O2 Sat by Pulse Oximetry 02/14/17 02/14/17 02/14/17 15:40 15:42 15:44 Temperature Pulse Rate 102 H 79 81 Respiratory 26 H 19 14 Rate Blood Pressure 147/80 147/80 147/80 Blood Pressure [Left] O2 Sat by Pulse Oximetry 02/14/17 02/14/17 02/14/17 15:46 15:48 15:50 Temperature Pulse Rate 81 85 88 Respiratory 18 20 18 Rate Blood Pressure 147/80 147/80 147/80 Blood Pressure [Left] O2 Sat by Pulse Oximetry 02/14/17 02/14/17 02/14/17 15:52 15:54 15:56 Temperature Pulse Rate 85 101 H 89 Respiratory 19 16 22 Rate Blood Pressure 147/80 147/80 147/80 Blood Pressure [Left] O2 Sat by Pulse Oximetry 02/14/17 02/14/17 02/14/17 15:58 16:00 16:01 Temperature Pulse Rate 79 77 80 Respiratory 11 L 21 19 Rate Blood Pressure 147/80 129/75 129/75 Blood Pressure [Left] O2 Sat by Pulse Oximetry 02/14/17 02/14/17 02/14/17 16:02 16:04 16:06 Temperature Pulse Rate 70 73 75 Respiratory 19 18 21 Rate Blood Pressure 129/75 129/75 129/75 Blood Pressure [Left] O2 Sat by Pulse Oximetry 02/14/17 02/14/17 02/14/17 16:08 16:10 16:12 Temperature Pulse Rate 80 78 70 Respiratory 22 20 17 Rate Blood Pressure 129/75 129/75 129/75 Blood Pressure [Left] O2 Sat by Pulse Oximetry 02/14/17 02/14/17 02/14/17 16:14 16:16 16:18 Temperature Pulse Rate 71 89 98 H Respiratory 16 16 22 Rate Blood Pressure 129/75 129/75 129/75 Blood Pressure [Left] O2 Sat by Pulse Oximetry 02/14/17 02/14/17 16:20 16:21 Temperature Pulse Rate 90 94 H Respiratory 16 16 Rate Blood Pressure 129/75 129/75 Blood Pressure [Left] O2 Sat by Pulse Oximetry - Reevaluation(s) Reevaluation #1: 02/14/17 14:09 Differential diagnosis: Chronic known cervical radiculopathy, arrhythmia, electrolyte derangement, structural cardiac disease, retrograde amnesia, intracranial injury Assessment and plan: 51-year-old female with subacute left-sided radicular pain , has appropriate strength and sensation, appropriate reflexes, has no indication of epidural compression syndrome at this time. Also incidentally offers a history of syncope. Patient has no recollection of the event, but she is clinically sober at this time, has a GCS of 15, with an anion score of 0, with no midline cervical spine tenderness. She reports her left arm pain has been present for quite a while. The patient is unfortunately allergic/ intolerance to NSAIDs. Given retrograde amnesia, reluctance to prescribe narcotic therapy or sedating therapy. Patient is complaining of acute on chronic pain, and will therefore medicated with acetaminophen. CT scan of the brain and cervical spine pending. Consult a batch operator, Ms. Deepika Jackson, to assist and recommendations for history of unprovoked syncope. Low risk by KRISTY score, low risk high heart score, EKG abnormal but unchanged from prior, no pulmonary embolus or DVT risk factors low risk by well's criteria, perc negative Unfortunately, the patient cannot recall the name of the device media production support manager for her ICD device, so we are attempting to obtain medical records from [facility]. 02/14/17 14:10 Reevaluation #2: 02/14/17 14:36 patient states she has [employer] device Contacted Colby from [employer], they're going to come by and performed device interrogation. Cardiology at the bedside. Reevaluation #3: 02/14/17 16:33 CT scan of the brain and cervical spine negative for acute disease. Patient making multiple requests for pain medication. Unfortunately, patient is allergic to NSAIDs. Explained to the patient that with a history of syncope and amnesia, narcotic medication not appropriate or indicated at this time. Patient became quite angry and belligerent, and left AGAINST MEDICAL ADVICE. The patient is of sound mind, alert and oriented 3, and exhibits decision- making capacity. She was instructed that she can return to the ER right away if she changes her mind, and the ERs up in 24 hours a day, 7 days a week. Patient left without her AMA paperwork. Had a page out to cardiology and to [employer] to inform them. I will put the patient's discharge paperwork together, and have the nurse contact the patient and inform the patient to pickler helper the discharge paperwork if she elects to do so. ED Medical Decision Making - Lab Data Result diagrams: 02/14/17 13:29 02/14/17 13:29 Vital Signs 02/14/17 13:12 Pulse Rate 84 Respiratory 17 Rate O2 Sat by Pulse 100 Oximetry - EKG Data -: EKG Interpreted by Or - EKG Data 02/14/17 14:14 Normal sinus, 82 bpm, borderline left axis deviation, left ventricular hypertrophy, QTC 461 ms, abnormal EKG, not morphologically consistent with STEMI , appears unchanged when compared to prior EKG. - Radiology Data Radiology results: report reviewed, image reviewed X-ray of the chest is negative for acute disease, left-sided ICD device is noted. Critical care attestation.: If time is entered above; I have spent that time in minutes in the direct care of this critically ill patient, excluding procedure time. ED Disposition Clinical Impression: Left arm pain Disposition: DC-07 LEFT AGAINST MED ADVICE Is pt being admited?: No Does the pt Need Aspirin: No Condition: Undetermined Instructions: Syncope (ED), Cervical Radiculopathy (ED) Additional Instructions: Discontinue consumption of sedating medications, including gabapentin, Ambien,, tramadol. Do not drive a car or operate motor vehicles until cleared by either her primary care doctor or batch operator. Follow up as soon as possible with a batch operator or primary care doctor for syncope/loss of consciousness. Follow up within the next month for left arm pain with any of the listed neurosurgery specialist. The emergency room is up in 24 hours a day, 7 days a week, and emergency room never closes. Please return to the ER right away if and when you change her mind about completing a medical evaluation, or if any new symptoms develop. Referrals: PRIMARY CARE, [Primary Care Provider] - 3-5 Days [facility] [Provider Group] - 3-5 Days [facility] [Provider Group] - 3-5 Days EVELYN WISE MD [Staff Physician] - 3-5 Days FERMÍN KHAN MD [Staff Physician] - 3-5 Days
[2017-02-14 13:54] LABS: Basophils % (Auto) 0.8 % (0.0-1.8); Hematocrit 42.6 % (30.3-42.9); Hemoglobin 14.6 gm/dl (10.1-14.3); Mean Corpuscular HGB Conc 34 % (30-34); Mean Corpuscular Hemoglobin 32 pg (28-32); Mean Corpuscular Volume 93 fl (79-97); Red Blood Count 4.59 M/mm3 (3.65-5.03); Red Cell Distribution Width 16.8 % (13.2-15.2); White Blood Count 8.7 K/mm3 (4.5-11.0)
[2017-02-14 13:55] LABS: Platelet Count 71 K/mm3 (140-440)
[2017-02-14 14:07] LABS: Anion Gap 21 mmol/L; BUN/Creatinine Ratio 15; Blood Urea Nitrogen 9 mg/dL (7-17); Calcium 9.1 mg/dL (8.4-10.2); Carbon Dioxide 21 mmol/L (22-30); Chloride 105.2 mmol/L (98-107); Glucose 92 mg/dL (65-100); Potassium 3.9 mmol/L (3.6-5.0); Sodium 143 mmol/L (137-145)
--- NOTE | 2017-02-14 14:10 | XRay Report ---
CHEST ONE VIEW INDICATION: Left arm pain, syncope. COMPARISON: 11/19/2016. FINDINGS: Portable, single, frontal chest radiograph demonstrates normal cardiomediastinal silhouette. Clear, well-expanded lungs. Slight aortic knob calcifications. Left AICD with single ventricular lead again noted. Unremarkable bones. Extrinsic EKG leads. CONCLUSION: No acute disease in the chest, stable. Thank you for the opportunity to participate in this patient's care.
[2017-02-14] MEDS ORDERED: NACL ONE (14:43)
[2017-02-14] MEDS ORDERED: TYLENOL PO ONE (14:43)
[2017-02-14] MEDS ORDERED: TYLENOL ONE (14:46)
--- NOTE | 2017-02-14 15:26 | Cat Scan Report ---
CT HEAD WITHOUT CONTRAST INDICATION: Syncope. COMPARISON: 11/20/2016. FINDINGS: Noncontrast head CT demonstrates normal, symmetric ventricles and sulci without acute or recent infarct, hemorrhage, mass effect or midline shift. No abnormal extra-axial fluid collections. Posterior fossa structures and basilar cisterns appear within normal limits. Clear imaged paranasal sinuses and mastoid air cells. Intact calvarium. Normal overlying scalp soft tissues. Edentulous jaw. Cervical spondylosis and fusion. CONCLUSION: No acute intracranial CT abnormality, as described. Thank you for the opportunity to participate in this patient's care.
--- NOTE | 2017-02-14 15:32 | Consultation ---
History of Present Illness Consult date: 02/14/17 Consult reason: syncope History of present illness: This is a 51 year old woman with a remote history of a dilated nonischemic cardiomyopathy. Most recent cardiac workup was a cardiac catheterization at [facility] a year ago, that revealed the absence of coronary artery disease, and established the diagnosis of a nonischemic cardiomyopathy. Subsequently, she underwent the placement of a single-chamber internal cardiac defibrillator at [facility]. Patient follows with her credit report checker at [facility]. Co-morbidities includes chronic thrombocytopenia, tobacco abuse, hypertension and a history of cervical radiculopathy, for which she received fusion surgery on the neck many years ago. She presents to the emergency department with complaints of left arm pain. There is no numbness. There are no focal motor weakness of her limbs. In addition, it's reported patient had a recent syncopal episode. Patient reports dizziness but she is unclear if she passed out. There is no chest pain or shortness of breath. Her ECG is normal sinus rhythm with left ventricle hypertrophy. Cardiology consultation was requested for evaluation of syncope. Medications and Allergies Allergies Allergy/AdvReac Type Severity Reaction Status Date / Time ketorolac tromethamine AdvReac Unknown Verified 11/19/16 12:34 [From Toradol] Home Medications Medication Instructions Recorded Confirmed Last Taken Type AtorvaSTATin [Lipitor] 40 mg PO QHS #30 tablet 11/23/16 02/14/17 Unknown Rx Carvedilol [Coreg] 12.5 mg PO DAILY #60 tablet 11/23/16 02/14/17 Unknown Rx Lisinopril [Zestril TAB] 40 mg PO QDAY #30 tablet 11/23/16 02/14/17 Unknown Rx Zolpidem [Ambien] 10 mg PO QHS #15 tablet 11/23/16 02/14/17 Unknown Rx traMADol [Ultram 50 MG tab] 50 mg PO BID #20 tablet 11/23/16 02/14/17 Unknown Rx Gabapentin [Neurontin] 400 mg PO TID 02/14/17 02/14/17 Unknown History Physical Examination Vital Signs Pulse Resp Pulse Ox 84 17 100 02/14/17 13:12 02/14/17 13:12 02/14/17 13:12 General appearance: no acute distress HEENT: Positive: PERRL Neck: Positive: trachea midline Cardiac: Positive: Reg Rate and Rhythm Results 02/14/17 13:29 02/14/17 13:29 CBC 02/14/17 Range/Units 13:29 WBC 8.7 (4.5-11.0) K/mm3 RBC 4.59 (3.65-5.03) M/mm3 Hgb 14.6 H (10.1-14.3) gm/dl Hct 42.6 (30.3-42.9) % Plt Count 71 L (140-440) K/mm3 Lymph # 1.7 (1.2-5.4) K/mm3 [place] # 0.4 (0.0-0.8) K/mm3 Eos # 0.1 (0.0-0.4) K/mm3 Baso # 0.1 (0.0-0.1) K/mm3 Comprehensive Metabolic Panel 02/14/17 Range/Units 13:29 Sodium 143 (137-145) mmol/L Potassium 3.9 (3.6-5.0) mmol/L Chloride 105.2 (98-107) mmol/L Carbon Dioxide 21 L (22-30) mmol/L BUN 9 (7-17) mg/dL Creatinine 0.6 L (0.7-1.2) mg/dL Glucose 92 (65-100) mg/dL Calcium 9.1 (8.4-10.2) mg/dL Assessment and Plan Left arm pain Neuropathy recent myelogram reports: -spinal stenosis with diffuse disc bulge/herniation at C3 to 4 with mild cord compression. -large left uncal spur at C5 to 6 with questionable cord involvement. -multilevel anterior cervical fusions and a moderate C3 compressions. Thrombocytopenia, chronic Questionable syncope Hx of Nonischemic Cardiomyopathy Presence of AICD ([employer]) We will get an ICD device interrogation for questionable syncopal episode.
--- NOTE | 2017-02-14 15:48 | Cat Scan Report ---
CT SCAN OF THE CERVICAL SPINE: HISTORY: Syncope. TECHNIQUE: Contiguous 1.25 mm axial images of the cervical spine were obtained. Sagittal and coronal reformatted images. FINDINGS: There is straightening of the normal lordosis. There is fusion of the disc spaces C4-5 and C5-6. Correlate for previous history of surgery. No surgical hardware is present. There is moderate to severe degenerative disc disease at C3-4 and C6-7. The facet joints are unremarkable. There is no evidence for fracture, malalignment or bone lesion. The prevertebral soft tissues are within normal limits. Impression: Chronic findings as described above. No evidence for acute injury.
[2017-02-14 16:29] VITALS: BP 129/75
[2017-02-14] MEDS ORDERED: COREG PO SCH (22:00)
[2017-02-15] MEDS ORDERED: HALFPRIN EC PO SCH (10:00)
[2017-02-15] MEDS ORDERED: ZESTRIL PO SCH (10:00)
== END 2017-02-14 16:43 | disposition left against medical advice (07) ==
LOC: ED 12:45
DX: M79.622 Pain in left upper arm (principal); I50.9 Heart failure, unspecified; I10 Essential (primary) hypertension; K21.9 Gastro-esophageal reflux disease without esophagitis; F31.9 Bipolar disorder, unspecified; J44.9 Chronic obstructive pulmonary disease, unspecified; F17.200 Nicotine dependence, unspecified, uncomplicated; Z88.8 Allergy status to other drugs, medicaments and biological substances
CPT/HCPCS: 36415; 70450; 71010; 72125; 80048; 82550; 83735; 84443; 84484; 85025; 93005; 93010

== ENCOUNTER 2020-08-24 15:17 | Inpatient (IN) | payer MEDICAID ==
[2020-08-24] MEDS ORDERED: ZOLPIDEM 5 MG TAB PO PRN (20:19)
[2020-08-24] MEDS: oxyCODONE /ACETAMINOPHEN 5-325MG TAB PO PRN (20:25)
[2020-08-24] MEDS: GABAPENTIN 300 MG CAP PO SCH (21:32)
[2020-08-25] MEDS: GABAPENTIN 300 MG CAP PO SCH ×3 (05:45→21:29)
--- NOTE | 2020-08-25 07:47 | History and Physical Report ---
GP History & Physical - History of Present Illness Date of admission: 08/24/20 Date of Examination: 08/25/20 Reason for Admission: Danger to self, Severe anxiety/depression, Unable to care for self History of Present Illness: HPI Patient is a 55-year-old , disabled female who is currently on SSI and lives with her son with past psychiatric history of insomnia, anxiety, depression and multiple medical comorbidity including COPD, CHF and degenerative disc disease who was admitted to the facility for severe depression and concern for psychopathological interference. Patient is a transfer from another hospital facility ED, after patient was presented to the ED room by daughter with complaints of suicidal and depressed mood. Patient states that this time of the year would have been a 38 anniversary with her late , that she was in her room having memories of him and also a conversation with him like they used to back in a day, when her daughter walked in the room and assumed she was having conversation with a spirit and that she wanted to and since she had the power of attorney recruiter she took her to hospital. Patient states she doesnt want to ,she wants to live to see her grandkids and all of that is a lie, being here makes her worse. PAST PSYCHIATRIC HISTORY: Diagnoses: Anxiety, insomnia, depression Suicide attempts or Self-harm behavior: Yes Prior psychiatric hospitalizations: Yes Substance Abuse history: Marijuana Previous psychiatric medications tried: Gabapentin Outpatient treatment: Yes PAST MEDICAL HISTORY: Family Psychiatric History: None reported or documented SOCIAL HISTORY Marital Status: COPD, CHF and degenerative disc Living Arrangements: With children Employment Status: [employer] Access to guns/weapons: None reported Education: GED History of Abuse: None reported Legal History: Yes REVIEW OF SYSTEMS Constitutional: Negative for weight loss ENT: Negative for stridor Respiratory: Negative for cough or hemoptysis All other systems reviewed and are negative MENTAL STATUS EXAMINATION General Appearance and Behavior: Age appropriate, good hygiene, wearing appropriate clothes,, good eye contact Cooperation: Participating/engaged, but Guarded Psychomotor Behavior: Psychomotor normal Mood: depressed Affect and affective range: irritable, labile Thought Process: illogical Thought Content: helplessness Speech: Normal rate, volume and rythm Intellectual Functioning: Average Suicidal Ideation: Denies SI Homicidal Ideation: Denies HI Impulse Control: Impaired Insight and Judgment: Limited insight and judgment Memory: Normal Attention: Normal Orientation: Alert, oriented Assessment and Plan - Psychiatric problem (1) MDD (major depressive disorder), recurrent episode Current Visit: Yes Status: Acute F33.9 Treatment Plan Restart home medication Patient admitted for inpatient psychiatric evaluation, medication adjustment and close monitoring The patient's behavior, mood, sleep and appetite will be closely monitored. Patient enrolled in individual and group therapeutic sessions and encouraged to attend. Patient provided with a safe and structured environment. Patient's physical health needs will be addressed by the Hospitalist. Hospitalist Consulted Labs including CBC, CMP, Lipid profile and Hemoglobin A1C levels ordered for baseline reference Social Assessment will be completed and the Videographer will work with patient and family to ensure a suitable and safe disposition Medication adjustment will be made as clinically indicated Usual Wellness Taoism/Preservation: - Start Trazodone 50 mg po QHS & 50 mg po QHS PRN between 10 PM & 2 AM for insomnia - Start Melatonin 5 mg po QHS to promote circadian rhythm - Start [place]-3 for brain health, reduce impulsivity, and as adjunctive treatment for mood disorder, continue upon discharge given overall benefits. - Start B1 prophylaxis with 200 mg po for 5 days The patient agreed on the treatment plan, understood the risk, benefit, alternative treatment, potential consequence of no treatment, and gave informed consent. Initial Certification Inpatient psych services: I certify that the inpatient psychiatric services are required for treatment that could reasonably be expected to improve the patient's condition. Estimated days: 6 Post hospital care: primary care provider, psychiatric provider Legal Status: Voluntary Patient Problems: Current Active Problems MDD (major depressive disorder), recurrent episode (Acute) Reaction to Hospitalization: Accepting Medications and Allergies Allergies Allergy/AdvReac Type Severity Reaction Status Date / Time aspirin Allergy Unknown Unverified 08/24/20 15:45 ketorolac tromethamine AdvReac Unknown Verified 11/19/16 12:34 [From Toradol] Home Medications Medication Instructions Recorded Confirmed Last Taken Type Furosemide [Lasix] 40 mg PO DAILY 08/25/20 08/25/20 Unknown History Gabapentin [Neurontin] 600 mg PO Q8H 08/25/20 08/25/20 Unknown History Ipratropium/Albuterol Sulfate 1 ampul IH Q4HR 08/25/20 08/25/20 Unknown History [DUONEB *Not for PRN Use*] Oxycodone HCl/Acetaminophen 1 tab PO Q8HR PRN 08/25/20 08/25/20 Unknown History [Oxycodone-Acetaminophen 10-325] Promethazine [Phenergan] 25 mg PO Q6HR PRN 08/25/20 08/25/20 Unknown History Sacubitril/Valsartan [Entresto 1 each PO BID 08/25/20 08/25/20 Unknown History 49-51 mg] Spironolactone [Aldactone] 25 mg PO QDAY 08/25/20 08/25/20 Unknown History Zolpidem [Ambien] 10 mg PO QHS PRN 08/25/20 08/25/20 Unknown History carvediloL [Coreg] 6.25 mg PO BID 08/25/20 08/25/20 Unknown History raNITIdine HCl [Zantac] 300 mg PO HS 08/25/20 08/25/20 Unknown History Active Meds: Active Medications Gabapentin (Gabapentin 300 Mg Cap) 600 mg PO Q8HR JAYJAY Last Admin: 08/25/20 05:45 Dose: 600 mg Documented by: Oxycodone/Acetaminophen (Oxycodone /Acetaminophen 5-325mg Tab) 2 tab PO Q8H PRN PRN Reason: Pain, Moderate (4-6) Last Admin: 08/24/20 20:25 Dose: 2 tab Documented by: Zolpidem Tartrate (Zolpidem 5 Mg Tab) 10 mg PO QHS PRN PRN Reason: Sleep Last Admin: 08/24/20 21:31 Dose: 10 mg Documented by: Results - Results Labs/Vitals: Laboratory Last Values POC Glucose 98 mg/dL (70-105) 08/24/20 19:47 Last Vital Signs Temp 98.8 F 08/24/20 22:00 Pulse 48 L 08/24/20 22:00 Resp 17 08/24/20 22:00 BP 119/65 08/24/20 22:00 Pulse Ox 97 08/24/20 22:00 Physical Examination - Constitutional Vitals: Vital Signs Temp Pulse Resp BP Pulse Ox 98.8 F 48 L 17 119/65 97 08/24/20 22:00 08/24/20 22:00 08/24/20 22:00 08/24/20 22:00 08/24/20 22:00 Temperature -Last 24 Hours Temperature 98.8 F Temperature 98.8 F Temperature 97.5 F Mental Status Exam - Vital signs Last Vital Signs Temp 98.8 F 08/24/20 22:00 Pulse 48 L 08/24/20 22:00 Resp 17 08/24/20 22:00 BP 119/65 08/24/20 22:00 Pulse Ox 97 08/24/20 22:00 Assessment and Plan - Psychiatric problem (1) MDD (major depressive disorder), recurrent episode Current Visit: Yes Status: Acute Physician Certification - Certification Statement Physician Certification Statement: This is an acknowledgement statement that MARITZA JARQUIN is a 55 year old F who requires inpatient psychiatric admission for treatment which could reasonably be expected to improve the patient's condition for Estimated period of time patient will need to remain in the hospital: [ ] Plan for post-hospital care: [ ]
[2020-08-25] MEDS: oxyCODONE /ACETAMINOPHEN 5-325MG TAB PO PRN ×2 (10:09→16:14)
--- NOTE | 2020-08-25 13:27 | Consultation ---
History of Present Illness - Reason for Consult Consult date: 08/25/20 Medical consult Requesting physician: DEBBIE BARRY - History of Present Illness 55-year-old female patient with significant past medical history of congestive heart failure, degenerative disc disease, cardiomyopathy, COPD, AICD in place Bipolar disorder was admitted to inpatient psych floor with severe anxiety depression and unable to care for self. Hospitalist service was consulted for medical consult.I have seen and examined the patient at the bedside, patient is cheerful and comfortable, reports that she is doing better Denies any chest pain or shortness of breath, denies nausea vomiting or abdominal pain. Patient was admitted with a history of depressed mood and suicidal ideation, as reported by her daughter. At the time of my evaluation patient denies any suicidal thoughts or ideation and is anxious to go home Past History Past Medical History: heart failure, hypertension, hyperlipidemia, other (Peripheral neuropathy) Past Surgical History: No surgical history Social history: smoking, IV drug use, AND/DNR-allow natural . denies: alcohol abuse, prescription drug abuse Family history: no significant family history Medications and Allergies Allergies Allergy/AdvReac Type Severity Reaction Status Date / Time aspirin Allergy Unknown Verified 08/26/20 13:03 ketorolac tromethamine AdvReac Unknown Verified 11/19/16 12:34 [From Toradol] Home Medications Medication Instructions Recorded Confirmed Last Taken Type Furosemide [Lasix] 40 mg PO DAILY 08/25/20 08/25/20 Unknown History Gabapentin [Neurontin] 600 mg PO Q8H 08/25/20 08/25/20 Unknown History Ipratropium/Albuterol Sulfate 1 ampul IH Q4HR 08/25/20 08/25/20 Unknown History [DUONEB *Not for PRN Use*] Oxycodone HCl/Acetaminophen 1 tab PO Q8HR PRN 08/25/20 08/25/20 Unknown History [Oxycodone-Acetaminophen 10-325] Promethazine [Phenergan] 25 mg PO Q6HR PRN 08/25/20 08/25/20 Unknown History Sacubitril/Valsartan [Entresto 1 each PO BID 08/25/20 08/25/20 Unknown History 49-51 mg] Spironolactone [Aldactone] 25 mg PO QDAY 08/25/20 08/25/20 Unknown History Zolpidem [Ambien] 10 mg PO QHS PRN 08/25/20 08/25/20 Unknown History carvediloL [Coreg] 6.25 mg PO BID 08/25/20 08/25/20 Unknown History raNITIdine HCl [Zantac] 300 mg PO HS 08/25/20 08/25/20 Unknown History Active Meds: Active Medications Gabapentin (Gabapentin 300 Mg Cap) 600 mg PO Q8HR JAYJAY Last Admin: 08/25/20 05:45 Dose: 600 mg Documented by: Oxycodone/Acetaminophen (Oxycodone /Acetaminophen 5-325mg Tab) 2 tab PO Q8H PRN PRN Reason: Pain, Moderate (4-6) Last Admin: 08/25/20 10:09 Dose: 2 tab Documented by: Zolpidem Tartrate (Zolpidem 5 Mg Tab) 10 mg PO QHS PRN PRN Reason: Sleep Last Admin: 08/24/20 21:31 Dose: 10 mg Documented by: Review of Systems Constitutional: weakness, no weight loss, no weight gain Ears, nose, mouth and throat: no nasal congestion, no nasal discharge Cardiovascular: edema, no chest pain, no orthopnea Respiratory: no cough, no shortness of breath Gastrointestinal: no nausea, no vomiting Genitourinary Female: no pelvic pain, no dysuria Musculoskeletal: no myalgias, no arthritis Integumentary: no rash, no lesions Neurological: weakness, no seizures, no syncope Psychiatric: anxiety, suicidal ideation, no depression Endocrine: no cold intolerance, no heat intolerance Hematologic/Lymphatic: no easy bruising, no easy bleeding Allergic/Immunologic: no urticaria, no allergic rhinitis Exam - Constitutional Vitals: Temp Pulse Resp BP Pulse Ox 98.8 F 48 L 18 119/65 97 08/24/20 22:00 08/24/20 22:00 08/25/20 10:09 08/24/20 22:00 08/24/20 22:00 General appearance: Present: no acute distress, obese - EENT Eyes: Present: PERRL, EOM intact - Neck Neck: Present: supple, normal ROM - Respiratory Respiratory effort: normal Respiratory: negative: rales, rhonchi, wheezing - Cardiovascular Rhythm: regular Heart Sounds: Present: S1 & S2 - Extremities Extremities: no ischemia, No edema - Abdominal General gastrointestinal: Present: soft, non-tender, non-distended, normal bowel sounds - Integumentary Integumentary: Present: clear, warm - Musculoskeletal Musculoskeletal: strength equal bilaterally - Psychiatric Psychiatric: appropriate mood/affect, cooperative - Neurologic Neurologic: moves all extremities Assessment and Plan --Major depression; Management per psych --History of hypertension; Resume home antihypertensive medications As needed hydralazine --Congestive heart failure; probably systolic Continue antifailure medications --History of AICD; Stable, supportive care --Ongoing tobacco use; Smoking cessation counseling Nicotine patch as needed --History of recreational drug use; Strongly advised to quit recreational drugs usage --Obesity; BMI 36.2 Patient needs weight reduction when medically stable --DVT prophylaxis; SCDs while resting --Full CODE STATUS Closely monitor the patient and adjust the management as needed Thank you for this consultation we will follow the patient along with you as needed Plan of care reviewed with the patient and her nurse
[2020-08-25] MEDS ORDERED: ZOLPIDEM 5 MG TAB PO PRN (13:37)
[2020-08-25] MEDS ORDERED: PROMETHAZINE 25 MG TAB PO PRN (13:37)
[2020-08-25] MEDS ORDERED: NON-FORMULARY EACH (Gabapentin [Neurontin] 600 MG Tablet) PO SCH (13:45)
[2020-08-25] MEDS: carvediloL 6.25 MG TAB PO SCH (21:30)
[2020-08-25] MEDS: SACUBITRIL/VALSARTAN 49-51 MG TAB PO SCH (21:31)
[2020-08-26] MEDS: oxyCODONE /ACETAMINOPHEN 5-325MG TAB PO PRN ×3 (00:30→18:31)
[2020-08-26] MEDS: FUROSEMIDE 40 MG TAB PO SCH (06:18)
[2020-08-26] MEDS: GABAPENTIN 300 MG CAP PO SCH ×3 (06:21→21:15)
[2020-08-26] MEDS: PANTOPRAZOLE 40 MG TAB PO SCH (06:30)
--- NOTE | 2020-08-26 08:00 | Progress Note ---
Subjective Date of service: 08/26/20 Principal diagnosis: (1) MDD (major depressive disorder), recurrent episode Subjective Comment: Psych Nurrse: Last evening the patient spent on the phone. She interacted at times with her peers but mostly talked on the phone. She denied si/hi/ah/vh. She presents as labile aeb laughing at times and tearful at other times. When patient doesn't know she is being watched she presents as calm with no s/s of pain. When staff is in front of patient she complains of pain and holds her arm. She has a fair appetite and is medication compliant. Overnight the patient waited to go to sleep until she could take her percocet. Her bp had increased to 122/51 and she was given percocet while holding other meds. Patient slept soundly afterward for total of 6 hours. Will continue to monitor patient for safety. Psych Progress Patient seen this Am at bedside, patient states she doesn't understand why her children commited her to inpatient, she felt being tricked into going to the hospital. Patient states she does not see anything wrong in her actions, has been to her late for many years before his departure, thought she may not see him physically but memories of him still lingers and in her head she talks to him, just like a regular person seen praying to God, even though they cant see him or know if he even existed. Patient denies AVH. Reason for continuing inpatient treatment: Patient mood has been stable, no internal stimuli behv, no preoccupation with abnormal thought content, continue to monitor and plan for discharge within 2-3 days. REVIEW OF SYSTEMS Constitutional: Negative for weight loss ENT: Negative for stridor Respiratory: Negative for cough or hemoptysis All other systems reviewed and are negative MENTAL STATUS EXAMINATION General Appearance and Behavior: Age appropriate, good hygiene, wearing appropriate clothes, good eye contact, cooperative polite with questioning. Cooperation: Participating/engaged Psychomotor Behavior: unremarkable and within normal limits Mood: Good Affect and affective range: congruent with mood Thought Process: Fluent/Logical, Thought Content: Within reality, Speech: Normal volume, Regular rate and rhythm, Intellectual Functioning: Average Suicidal Ideation: Denies SI Homicidal Ideation: Denies HI Impulse Control: Unimpaired Insight and Judgment: Normal insight and judgment, Memory: Normal, Attention: Normal, Orientation: Alert, oriented, Assessment and Plan - Psychiatric problem (1) MDD (major depressive disorder), recurrent episode Current Visit: Yes Status: Acute F33.9 Treatment Plan Continue home medications Patient admitted for inpatient psychiatric evaluation, medication adjustment and close monitoring The patient's behavior, mood, sleep and appetite will be closely monitored. Patient enrolled in individual and group therapeutic sessions and encouraged to attend. Patient provided with a safe and structured environment. Patient's physical health needs will be addressed by the Hospitalist. Hospitalist Consulted Labs including CBC, CMP, Lipid profile and Hemoglobin A1C levels ordered for baseline reference Social Assessment will be completed and the Brand Planner will work with patient and family to ensure a suitable and safe disposition Medication adjustment will be made as clinically indicated Usual Wellness Church/Preservation: - Start Trazodone 50 mg po QHS & 50 mg po QHS PRN between 10 PM & 2 AM for insomnia - Start Melatonin 5 mg po QHS to promote circadian rhythm - Start [place]-3 for brain health, reduce impulsivity, and as adjunctive treatment for mood disorder, continue upon discharge given overall benefits. - Start B1 prophylaxis with 200 mg po for 5 days The patient agreed on the treatment plan, understood the risk, benefit, alternative treatment, potential consequence of no treatment, and gave informed consent. Initial Certification Inpatient psych services: I certify that the inpatient psychiatric services are required for treatment that could reasonably be expected to improve the patient's condition. Estimated days: 5 Post hospital care: primary care provider, psychiatric provider Assessment and Plan - Patient Problems (1) MDD (major depressive disorder), recurrent episode Current Visit: Yes Status: Acute Medications and Allergies Allergies Allergy/AdvReac Type Severity Reaction Status Date / Time aspirin Allergy Unknown Unverified 08/24/20 15:45 ketorolac tromethamine AdvReac Unknown Verified 11/19/16 12:34 [From Toradol] Home Medications Medication Instructions Recorded Confirmed Last Taken Type Furosemide [Lasix] 40 mg PO DAILY 08/25/20 08/25/20 Unknown History Gabapentin [Neurontin] 600 mg PO Q8H 08/25/20 08/25/20 Unknown History Ipratropium/Albuterol Sulfate 1 ampul IH Q4HR 08/25/20 08/25/20 Unknown History [DUONEB *Not for PRN Use*] Oxycodone HCl/Acetaminophen 1 tab PO Q8HR PRN 08/25/20 08/25/20 Unknown History [Oxycodone-Acetaminophen 10-325] Promethazine [Phenergan] 25 mg PO Q6HR PRN 08/25/20 08/25/20 Unknown History Sacubitril/Valsartan [Entresto 1 each PO BID 08/25/20 08/25/20 Unknown History 49-51 mg] Spironolactone [Aldactone] 25 mg PO QDAY 08/25/20 08/25/20 Unknown History Zolpidem [Ambien] 10 mg PO QHS PRN 08/25/20 08/25/20 Unknown History carvediloL [Coreg] 6.25 mg PO BID 08/25/20 08/25/20 Unknown History raNITIdine HCl [Zantac] 300 mg PO HS 08/25/20 08/25/20 Unknown History Active Meds: Active Medications Carvedilol (Carvedilol 6.25 Mg Tab) 6.25 mg PO BID [facility] Last Admin: 08/25/20 21:30 Dose: Not Given Documented by: Furosemide (Furosemide 40 Mg Tab) 40 mg PO DAILY@0600 [facility] Last Admin: 08/26/20 06:18 Dose: 40 mg Documented by: Gabapentin (Gabapentin 300 Mg Cap) 600 mg PO Q8HR [facility] Last Admin: 08/26/20 06:21 Dose: 600 mg Documented by: Oxycodone/Acetaminophen (Oxycodone /Acetaminophen 5-325mg Tab) 2 tab PO Q8H PRN PRN Reason: Pain, Moderate (4-6) Last Admin: 08/26/20 00:30 Dose: 2 tab Documented by: Pantoprazole Sodium (Pantoprazole 40 Mg Tab) 40 mg PO QDAC [facility] Last Admin: 08/26/20 06:30 Dose: 40 mg Documented by: Promethazine HCl (Promethazine 25 Mg Tab) 25 mg PO Q6HR PRN PRN Reason: Nausea Spironolactone (Spironolactone 25 Mg Tab) 25 mg PO QDAY [facility] Zolpidem Tartrate (Zolpidem 5 Mg Tab) 10 mg PO QHS PRN PRN Reason: Sleep Results - Results Labs/Vitals: Laboratory Last Values POC Glucose 98 mg/dL (70-105) 08/24/20 19:47 Last Vital Signs Temp 97.8 F 08/26/20 06:31 Pulse 60 08/26/20 06:31 Resp 18 08/26/20 06:31 BP 95/50 08/26/20 06:31 Pulse Ox 98 08/26/20 06:31
[2020-08-26] MEDS: SACUBITRIL/VALSARTAN 49-51 MG TAB PO SCH ×2 (09:29→21:15)
[2020-08-26] MEDS: carvediloL 6.25 MG TAB PO SCH ×2 (09:30→21:15)
[2020-08-26] MEDS: SPIRONOLACTONE 25 MG TAB PO SCH (09:30)
--- NOTE | 2020-08-26 14:39 | Progress Note ---
Assessment and Plan Assessment and plan: --Major depression; Management per psych --History of hypertension; Resume home antihypertensive medications As needed hydralazine --Congestive heart failure; probably systolic Continue antifailure medications --History of AICD; Stable, supportive care --Ongoing tobacco use; Smoking cessation counseling Nicotine patch as needed --History of recreational drug use; Strongly advised to quit recreational drugs usage --Obesity; BMI 36.2 Patient needs weight reduction when medically stable --DVT prophylaxis; SCDs while resting --Full CODE STATUS We will closely monitor the patient and adjust management as needed Call us with questions and concerns History Interval history: I seen and examined the patient in [facility] in the activity room. Patient is cheerful and comfortable No new complaints, no new overnight events reported by the nursing Vital signs reviewed Hospitalist Physical - Constitutional Vitals: Temp Pulse Resp BP Pulse Ox 97.8 F 60 18 97/50 98 08/26/20 06:31 08/26/20 09:30 08/26/20 06:31 08/26/20 09:30 08/26/20 06:31 General appearance: Present: no acute distress, well-nourished, obese - EENT Eyes: Present: PERRL, EOM intact - Neck Neck: Present: supple, normal ROM - Respiratory Respiratory effort: normal Respiratory: negative: rales, rhonchi, wheezing - Cardiovascular Rhythm: regular Heart Sounds: Present: S1 & S2 - Extremities Extremities: no ischemia, No edema - Abdominal General gastrointestinal: soft, non-tender, non-distended, normal bowel sounds - Integumentary Integumentary: Present: clear, warm - Psychiatric Psychiatric: appropriate mood/affect - Neurologic Neurologic: moves all extremities Results - Labs Labs: Laboratory Last Values POC Glucose 98 mg/dL (70-105) 08/24/20 19:47 Dominguez/IV: Voiding Method Toilet Active Medications - Current Medications Current Medications: Generic Name Dose Route Start Last Admin Trade Name Elenoq PRN Reason Stop Dose Admin Carvedilol 6.25 mg 08/25/20 22:00 08/26/20 09:30 Carvedilol 6.25 Mg Tab PO 6.25 mg BID JAYJAY Administration Furosemide 40 mg 08/26/20 06:00 08/26/20 06:18 Furosemide 40 Mg Tab PO 40 mg DAILY@0600 JAYJAY Administration Gabapentin 600 mg 08/24/20 22:00 08/26/20 13:04 Gabapentin 300 Mg Cap PO 600 mg Q8HR JAYJAY Administration Oxycodone/Acetaminophen 2 tab 08/24/20 20:18 08/26/20 09:30 Oxycodone /Acetaminophen 5-325mg Tab PO 2 tab Q8H PRN Administration Pain, Moderate (4-6) Pantoprazole Sodium 40 mg 08/26/20 07:30 08/26/20 06:30 Pantoprazole 40 Mg Tab PO 40 mg QDAC JAYJAY Administration Promethazine HCl 25 mg 08/25/20 13:37 Promethazine 25 Mg Tab PO Q6HR PRN Nausea Spironolactone 25 mg 08/26/20 10:00 08/26/20 09:30 Spironolactone 25 Mg Tab PO Not Given QDAY JAYJAY Zolpidem Tartrate 10 mg 08/25/20 13:37 Zolpidem 5 Mg Tab PO QHS PRN Sleep
[2020-08-27] MEDS: oxyCODONE /ACETAMINOPHEN 5-325MG TAB PO PRN ×2 (03:48→12:12)
[2020-08-27] MEDS: GABAPENTIN 300 MG CAP PO SCH ×2 (06:05→14:04)
[2020-08-27] MEDS: FUROSEMIDE 40 MG TAB PO SCH (06:05)
--- NOTE | 2020-08-27 07:46 | Progress Note ---
Subjective Date of service: 08/27/20 Principal diagnosis: (1) MDD (major depressive disorder), recurrent episode Subjective Comment: Psych Nurrse: pt rested well during the night, slept for approximately 8hrs, lasix not given because of blood pressure of 101/46,pulse of 56, no distress noted, will continue to monitor for safety. Psych Progress Patient describes a good and stable mood, denies being depressed or excessively nervous. Patient eats and sleeps well. Patient denies panic attacks, recurrent nightmares or flashbacks. Patient denies symptoms suggestive of OCD or PTSD. Patient denies hallucinations, paranoia, thought interference and no features suggestive of hypomania or nish. Patiently completely denies suicidal or homicidal thoughts. Reason for continuing inpatient treatment: Patient ready for discharge home. REVIEW OF SYSTEMS Constitutional: Negative for weight loss ENT: Negative for stridor Respiratory: Negative for cough or hemoptysis All other systems reviewed and are negative MENTAL STATUS EXAMINATION General Appearance and Behavior: Age appropriate, good hygiene, wearing appropriate clothes, good eye contact, cooperative polite with questioning. Cooperation: Participating/engaged Psychomotor Behavior: unremarkable and within normal limits Mood: Good Affect and affective range: congruent with mood Thought Process: Fluent/Logical, Thought Content: Within reality, Speech: Normal volume, Regular rate and rhythm, Intellectual Functioning: Average Suicidal Ideation: Denies SI Homicidal Ideation: Denies HI Impulse Control: Unimpaired Insight and Judgment: Normal insight and judgment, Memory: Normal, Attention: Normal, Orientation: Alert, oriented, Assessment and Plan - Psychiatric problem (1) MDD (major depressive disorder), recurrent episode Current Visit: Yes Status: Acute F33.9 Treatment Plan Continue home medications Patient admitted for inpatient psychiatric evaluation, medication adjustment and close monitoring The patient's behavior, mood, sleep and appetite will be closely monitored. Patient enrolled in individual and group therapeutic sessions and encouraged to attend. Patient provided with a safe and structured environment. Patient's physical health needs will be addressed by the Hospitalist. Hospitalist Consulted Labs including CBC, CMP, Lipid profile and Hemoglobin A1C levels ordered for baseline reference Social Assessment will be completed and the Condenser Tube Tender will work with patient and family to ensure a suitable and safe disposition Medication adjustment will be made as clinically indicated Usual Wellness Jew/Preservation: - Start Trazodone 50 mg po QHS & 50 mg po QHS PRN between 10 PM & 2 AM for insomnia - Start Melatonin 5 mg po QHS to promote circadian rhythm - Start Pierpont-3 for brain health, reduce impulsivity, and as adjunctive treatment for mood disorder, continue upon discharge given overall benefits. - Start B1 prophylaxis with 200 mg po for 5 days The patient agreed on the treatment plan, understood the risk, benefit, alternative treatment, potential consequence of no treatment, and gave informed consent. Initial Certification Inpatient psych services: I certify that the inpatient psychiatric services are required for treatment that could reasonably be expected to improve the patient's condition. Estimated days: 5 Post hospital care: primary care provider, psychiatric provider Assessment and Plan - Patient Problems (1) MDD (major depressive disorder), recurrent episode Current Visit: Yes Status: Acute Medications and Allergies Allergies Allergy/AdvReac Type Severity Reaction Status Date / Time aspirin Allergy Unknown Verified 08/26/20 13:03 ketorolac tromethamine AdvReac Unknown Verified 11/19/16 12:34 [From Toradol] Home Medications Medication Instructions Recorded Confirmed Last Taken Type Furosemide [Lasix] 40 mg PO DAILY 08/25/20 08/25/20 Unknown History Gabapentin [Neurontin] 600 mg PO Q8H 08/25/20 08/25/20 Unknown History Ipratropium/Albuterol Sulfate 1 ampul IH Q4HR 08/25/20 08/25/20 Unknown History [DUONEB *Not for PRN Use*] Oxycodone HCl/Acetaminophen 1 tab PO Q8HR PRN 08/25/20 08/25/20 Unknown History [Oxycodone-Acetaminophen 10-325] Promethazine [Phenergan] 25 mg PO Q6HR PRN 08/25/20 08/25/20 Unknown History Sacubitril/Valsartan [Entresto 1 each PO BID 08/25/20 08/25/20 Unknown History 49-51 mg] Spironolactone [Aldactone] 25 mg PO QDAY 08/25/20 08/25/20 Unknown History Zolpidem [Ambien] 10 mg PO QHS PRN 08/25/20 08/25/20 Unknown History carvediloL [Coreg] 6.25 mg PO BID 08/25/20 08/25/20 Unknown History raNITIdine HCl [Zantac] 300 mg PO HS 08/25/20 08/25/20 Unknown History Active Meds: Active Medications Carvedilol (Carvedilol 6.25 Mg Tab) 6.25 mg PO BID [facility] Last Admin: 08/26/20 21:15 Dose: Not Given Documented by: Furosemide (Furosemide 40 Mg Tab) 40 mg PO DAILY@0600 [facility] Last Admin: 08/27/20 06:05 Dose: Not Given Documented by: Gabapentin (Gabapentin 300 Mg Cap) 600 mg PO Q8HR [facility] Last Admin: 08/27/20 06:05 Dose: 600 mg Documented by: Oxycodone/Acetaminophen (Oxycodone /Acetaminophen 5-325mg Tab) 2 tab PO Q8H PRN PRN Reason: Pain, Moderate (4-6) Last Admin: 08/27/20 03:48 Dose: 2 tab Documented by: Pantoprazole Sodium (Pantoprazole 40 Mg Tab) 40 mg PO QDAC [facility] Last Admin: 08/26/20 06:30 Dose: 40 mg Documented by: Promethazine HCl (Promethazine 25 Mg Tab) 25 mg PO Q6HR PRN PRN Reason: Nausea Spironolactone (Spironolactone 25 Mg Tab) 25 mg PO QDAY [facility] Last Admin: 08/26/20 09:30 Dose: Not Given Documented by: Zolpidem Tartrate (Zolpidem 5 Mg Tab) 10 mg PO QHS PRN PRN Reason: Sleep Results - Results Labs/Vitals: Laboratory Last Values POC Glucose 98 mg/dL (70-105) 08/24/20 19:47 Last Vital Signs Temp 98.3 F 08/26/20 20:11 Pulse 85 08/26/20 21:15 Resp 17 08/26/20 20:11 BP 86/53 08/26/20 21:15 Pulse Ox 100 08/26/20 20:11
[2020-08-27] MEDS: PANTOPRAZOLE 40 MG TAB PO SCH (09:18)
[2020-08-27] MEDS: SPIRONOLACTONE 25 MG TAB PO SCH (09:18)
[2020-08-27] MEDS: SACUBITRIL/VALSARTAN 49-51 MG TAB PO SCH (09:19)
[2020-08-27] MEDS: carvediloL 6.25 MG TAB PO SCH (09:19)
[2020-08-27 12:15] VITALS: BP 119/60
--- NOTE | 2020-08-27 13:06 | Discharge Summary ---
Providers - Providers Date of Admission: 08/24/20 18:37 Date of discharge: 08/27/20 Attending physician: DEBBIE BARRY MD 08/24/20 18:42 Consult to Physician [CONS] Routine Comment: Consulting Provider: ANTONIA CARDENAS Physician Instructions: Reason For Exam: [facility] Primary care physician: CONTRACT PROCESSOR Hospitalization Reason for admission: Hallucinations Condition: Good Hospital course: The patient was provided inpatient psychiatric treatment with safe and supportive environment, group/individual therapy, psychiatric medication, medication adjustment, adverse effect monitor, medical evaluation, medical treatment, social service assessment, social support meeting, placement asses sment and psycho-education. The patients mood, cognition, behavior, motivation, compliance to treatment and appreciation on family/social support are improved and stabilized. At the time of discharge, the patient had no suicidal ideas, no homicidal ideas, no aggressive thoughts, no endangering behavior and no debilitating adverse effects. The patient agreed on the treatment plan, understood the risk, benefit, alternative treatment, potential consequence of no treatment, and gave informed consent. Over 35 minutes spent for discharge process, education and behavioral counselling. Disposition: DC-01 TO HOME OR SELFCARE Allergies/Adverse Reactions: Allergies aspirin Allergy (Verified 08/26/20 13:03) Unknown ketorolac tromethamine [From Toradol] Adverse Reaction (Verified 11/19/16 12:34) Unknown Vital Signs: Last Vital Signs Temp 97.9 F 08/27/20 08:54 Pulse 52 L 08/27/20 12:07 Resp 19 08/27/20 12:12 BP 119/60 08/27/20 12:07 Pulse Ox 98 08/27/20 12:07 Last Lab: Laboratory Last Values POC Glucose 98 mg/dL (70-105) 08/24/20 19:47 - Discharge Diagnoses (1) MDD (major depressive disorder), recurrent episode Status: Acute Core Measure Documentation - Palliative Care Palliative Care/ Comfort Measures: Not Applicable - Core Measures Any of the following diagnoses?: none Exam - Constitutional Vitals: Temp Pulse Resp BP Pulse Ox 97.9 F 52 L 19 119/60 98 08/27/20 08:54 08/27/20 12:07 08/27/20 12:12 08/27/20 12:07 08/27/20 12:07 General appearance: Present: no acute distress - EENT Eyes: Present: PERRL, EOM intact ENT: hearing intact, clear oral mucosa, dentition normal - Neck Neck: Present: supple - Respiratory Respiratory effort: other - Abdominal General gastrointestinal: Present: deferred Female genitourinary: Present: deferred Plan Care Plan Goals: Goals: Maintain good and stable mental health. Plan of Treatment: The patient should be compliant with medications, not to use drugs and not to drink alcohol. The patient understands that if suicidal ideas, homicidal ideas, or any endangering thoughts arise, the patient should immediately seek for emergent assistance including but not limited to crisis hot line and emergency room. Follow up with outpatient Psychiatrist and PCP within 7 - 14 days of discharge. Follow up with: PRIMARY CARE, [Primary Care Provider] - 7 Days Prescriptions: Gabapentin 600 mg PO Q8HR #90 capsule
[2020-08-27 13:56] LABS: Basophils % (Auto) 0.6 % (0.0-1.8); Eosinophils # (Auto) 0.2 K/mm3 (0.0-0.4); Eosinophils % (Auto) 4.4 % (0.0-4.3); Hematocrit 36.2 % (30.3-42.9); Hemoglobin 11.4 gm/dl (10.1-14.3); Lymphocytes # (Auto) 1.2 K/mm3 (1.2-5.4); Lymphocytes % (Auto) 24.7 % (13.4-35.0); Mean Corpuscular HGB Conc 32 % (30-34); Mean Corpuscular Volume 86 fl (79-97); Monocytes # (Auto) 0.4 K/mm3 (0.0-0.8); Monocytes % (Auto) 7.3 % (0.0-7.3); Platelet Count 154 K/mm3 (140-440)
[2020-08-27 13:57] LABS: Red Cell Distribution Width 20.4 % (13.2-15.2)
[2020-08-27 14:24] LABS: Calcium 8.4 mg/dL (8.4-10.2)
== END 2020-08-27 16:56 | disposition home or self-care (01) | DRG 885 ==
LOC: UNDOADMIN 15:17 → 3A 15:17 → 5A 18:37
PROVIDERS: ADMIT Psychiatry & Neurology Psychiatry; ATTEND Psychiatry & Neurology Psychiatry
DX: F33.9 Major depressive disorder, recurrent, unspecified (principal); I50.9 Heart failure, unspecified; I42.9 Cardiomyopathy, unspecified; J44.9 Chronic obstructive pulmonary disease, unspecified; I11.0 Hypertensive heart disease with heart failure; F17.200 Nicotine dependence, unspecified, uncomplicated; E66.9 Obesity, unspecified; Z88.6 Allergy status to analgesic agent; Z95.810 Presence of automatic (implantable) cardiac defibrillator; Z79.899 Other long term (current) drug therapy; Z71.6 Tobacco abuse counseling; Z68.36 Body mass index [BMI] 36.0-36.9, adult
CPT/HCPCS: 36415; 80048; 80061; 82962; 83036; 84443; 85025; G0378